=== PATIENT | female | born 1955 | race Caucasian/White ===

== ENCOUNTER 2017-02-14 08:48 | Emergency (ER) | payer OTHER ==
[2017-02-14 09:06] VITALS: TEMP 98.2
--- NOTE | 2017-02-14 10:13 | PDOC ---
History of Present Illness - General Chief Complaint: Psychiatric Stated Complaint: PRESSURE PROBLEM Time Seen by Provider: 02/14/17 09:34 History Source: Patient Exam Limitations: No Limitations - History of Present Illness Initial Comments: 02/14/17 10:08 61-year-old female with history of anxiety and bipolar presents to the ED for blood pressure check and while she was triage she states she feels overwhelmed and attributes her medical problems to her stress. Patient states that take her antipsychotic medications daily including her Lopressor. Patient denies homicidal or suicidal ideation but states feels she can't talk to anyone especially her who is very cold and distant. Patient also states is unemployed and is frequently bored. Patient states sees a psychiatrist regularly but feels he is only limited with his time and feel she needs more to speak to. Timing/Duration: intermittent Severity: mild Associated Symptoms: reports: denies symptoms Past History - Past Medical History Allergies/Adverse Reactions: Allergies Allergy/AdvReac Type Severity Reaction Status Date / Time Sulfa (Sulfonamide Allergy Verified 02/14/17 08:53 Antibiotics) [Sulfa(Sulfonamide Antibiotics)] Home Medications: Ambulatory Orders Alprazolam [Xanax] 1 mg PO BID PRN 09/12/14 Amlodipine Besylate [Norvasc -] 5 mg PO DAILY 09/12/14 Cholecalciferol (Vitamin D3) [Vitamin D3] 1,000 unit PO DAILY 09/12/14 Fluoxetine HCl [Prozac] 60 mg PO DAILY 09/12/14 Folic Acid/Mv,Fe,Min [Centrum Chewable Tablet] 1 each PO DAILY 09/12/14 Levothyroxine [Synthroid -] 12.5 mcg PO DAILY 09/12/14 Losartan Potassium 50 mg PO DAILY 09/12/14 Metoprolol Succinate [Toprol XL -] 50 mg PO BID 09/12/14 Mirtazapine [Remeron -] 15 mg PO HS PRN 09/12/14 Oxycodone HCl/Acetaminophen [Percocet 5-325 mg Tablet] 1 tab PO Q4H PRN Azithromycin [Zithromax 250mg Tablets -] 500 mg PO DAILY #7 tablet 09/18/14 Cefuroxime Axetil [Ceftin -] 500 mg PO BID #14 tablet 09/18/14 Oxycodone HCl/Acetaminophen [Percocet 5-325 mg Tablet] 1 tab PO Q4H #20 tablet MDD 4 09/01/16 Anemia: No Asthma: No Cancer: No Cardiac Disorders: No CVA: No COPD: No CHF: No Dementia: No Diabetes: No GI Disorders: No Disorders: Yes (UTI) HTN: Yes Hypercholesterolemia: Yes Liver Disease: Yes (HEP C) Suicide Attempt (Hx): No Seizures: No Thyroid Disease: Yes (HYPOTHYROID) - Surgical History Abdominal Surgery: No Appendectomy: No Cardiac Surgery: No Cholecystectomy: No Lung Surgery: No Neurologic Surgery: No Orthopedic Surgery: No - Immunization History Immunization Up to Date: Yes - Psycho/Social/Smoking Cessation Hx Anxiety: Yes Suicidal Ideation: No Smoking Status: Yes Smoking History: Current every day smoker Have you smoked in the past 12 months: Yes Number of Cigarettes Smoked Daily: 10 If you are a former smoker, when did you quit?: JUN 2014 Information on smoking cessation initiated: No 'Breaking Loose' booklet given: 07/03/12 Hx Alcohol Use: No Drug/Substance Use Hx: No Substance Use Type: None Hx Substance Use Treatment: No Patient Lives Alone: No Lives with/in: spouse/SO Review of Systems - Review of Systems Able to Perform ROS?: Yes Constitutional: No: Symptoms Reported HEENTM: No: Symptoms Reported Respiratory: No: Symptoms reported Cardiac (ROS): No: Symptoms Reported ABD/GI: No: Symptoms Reported : No: Symptoms Reported Musculoskeletal: No: Symptoms Reported Integumentary: No: Symptoms Reported Neurological: No: Symptoms reported Psychiatric: Yes: Anxiety, Frequent Crying, Stressors, Mood Swings Endocrine: No: Symptoms Reported Hematologic/Lymphatic: No: Symptoms Reported *Physical Exam - Vital Signs Last Vital Signs Temp Pulse Resp BP Pulse Ox 98.2 F 76 20 145/94 99 02/14/17 08:53 02/14/17 08:53 02/14/17 08:53 02/14/17 08:53 02/14/17 08:53 - Physical Exam General Appearance: Yes: Nourished, Appropriately Dressed. No: Apparent Distress HEENT: negative: Pale Conjunctivae Neck: positive: Supple Respiratory/Chest: positive: Lungs Clear, Normal Breath Sounds. negative: Respiratory Distress, Accessory Muscle Use Cardiovascular: positive: Regular Rhythm, Regular Rate. negative: Murmur Gastrointestinal/Abdominal: positive: Soft. negative: Tenderness Extremity: positive: Normal Capillary Refill. negative: Pedal Edema Integumentary: positive: Normal Color, Warm, Moist Neurologic: positive: Normal Mood/Affect (anxious and tearful), Motor Strength 5 /5 (ambulatory) Medical Decision Making - Medical Decision Making 02/14/17 10:21 Patient initially had just for blood pressure check since she thought her blood pressure is high and when she was here she was found to be tearful and anxious. On my exam patient contracted for safety and appears in no acute danger. Patient recommended to find outlets such as local social clubs, volunteering, or support groups. *DC/Admit/Observation/Transfer Diagnosis at time of Disposition: Blood pressure check Anxiety disorder Qualifiers: Anxiety disorder type: other mixed anxiety disorder Qualified Code(s): F41.3 - Other mixed anxiety disorders - Discharge Dispostion Disposition: HOME Condition at time of disposition: Good - Referrals Referrals: Damien Mckeon MD [Primary Care Provider] - - Patient Instructions Printed Discharge Instructions: Yoga May Help Reduce Anxiety and Stress Additional Instructions: Try to utilize dysuria local community in regards to attending events in the area, volunteering at local businesses or joining a support group. continue taking your medication as prescribed
[2017-02-14 10:24] VITALS: BP 153/94; PULSE 66
== END 2017-02-14 10:28 | disposition home or self-care (01) ==
LOC: JER 08:48
DX: Z01.30 Encounter for examination of blood pressure without abnormal findings (principal); F41.3 Other mixed anxiety disorders; I10 Essential (primary) hypertension; E78.00 Pure hypercholesterolemia, unspecified; E03.9 Hypothyroidism, unspecified; F17.210 Nicotine dependence, cigarettes, uncomplicated; Z88.1 Allergy status to other antibiotic agents; Z88.2 Allergy status to sulfonamides
CPT/HCPCS: 99281-25

== ENCOUNTER 2017-04-22 14:48 | Emergency (ER) | payer OTHER ==
[2017-04-22 14:55] VITALS: BP 146/97; PULSE 85; TEMP 98.6; BMI 20.1
--- NOTE | 2017-04-22 15:49 | PDOC ---
History of Present Illness - General Chief Complaint: Pain Stated Complaint: LT KNEE/LEG PAIN Time Seen by Provider: 04/22/17 15:23 History Source: Patient Exam Limitations: No Limitations - History of Present Illness Initial Comments: 04/22/17 15:46 Patient is here with complaints of left knee pain times one week. Patient has multiple complaints of states has chronic issues including hepatitis C and questionable multiple sclerosis. Patient denies any treatment currently but is being evaluated for treatment for hepatitis C by medical editor. Occurred: reports: last week Severity: reports: mild, moderate Pain Location: reports: lower extremity (patient is here with complaints of left leg fullness and pain in posterior fossa. States has had worsened tenderness over the past week. Without any at,, denies exercise changes, no heavy lifting or strenuous activity recently. Has never hurt this leg. Denies numbness or tingling to foot but feels some swelling. No shortness of breath or cough, no recent travel or prolonged periods of sitting.) Method of Injury: Yes: unknown Modifying Factors: improves with: None Loss of Consciousness: no loss of consciousness Associated Symptoms (Fall): denies symptoms Past History - Travel Traveled outside of the country in the last 30 days: No Close contact w/someone who was outside of country & ill: No - Past Medical History Allergies/Adverse Reactions: Allergies Allergy/AdvReac Type Severity Reaction Status Date / Time Sulfa (Sulfonamide Allergy Verified 04/22/17 14:54 Antibiotics) [Sulfa(Sulfonamide Antibiotics)] Home Medications: Ambulatory Orders Amlodipine Besylate [Norvasc -] 5 mg PO DAILY 09/12/14 Cholecalciferol (Vitamin D3) [Vitamin D3] 1,000 unit PO DAILY 09/12/14 Fluoxetine HCl [Prozac] 60 mg PO DAILY 09/12/14 Folic Acid/Mv,Fe,Min [Centrum Chewable Tablet] 1 each PO DAILY 09/12/14 Levothyroxine [Synthroid -] 100 mcg PO DAILY 09/12/14 Metoprolol Succinate [Toprol XL -] 50 mg PO DAILY 09/12/14 Diazepam [Valium] 10 mg PO BID PRN 02/14/17 Furosemide [Lasix] 40 mg PO ASDIR 02/14/17 Hydroxyzine HCl [Atarax -] 10 mg PO DAILY PRN 02/14/17 Ubidecarenone [Co Q-10] 10 mg PO DAILY 02/14/17 Anemia: No Asthma: No Cancer: No Cardiac Disorders: No CVA: No COPD: No (PNEUMONIA) CHF: No Dementia: No Diabetes: No GI Disorders: No Disorders: Yes (UTI) HTN: Yes Hypercholesterolemia: Yes Liver Disease: Yes (HEP C) Suicide Attempt (Hx): No Seizures: No Thyroid Disease: Yes (HYPOTHYROID) - Surgical History Abdominal Surgery: No Appendectomy: No Cardiac Surgery: No Cholecystectomy: No Lung Surgery: No Neurologic Surgery: No Orthopedic Surgery: No - Immunization History Immunization Up to Date: Yes - Psycho/Social/Smoking Cessation Hx Anxiety: Yes Suicidal Ideation: No Smoking Status: Yes Smoking History: Current every day smoker Have you smoked in the past 12 months: Yes Number of Cigarettes Smoked Daily: 20 If you are a former smoker, when did you quit?: JUN 2014 Information on smoking cessation initiated: Yes 'Breaking Loose' booklet given: 04/22/17 Hx Alcohol Use: No Drug/Substance Use Hx: No Substance Use Type: None Hx Substance Use Treatment: No Review of Systems - Review of Systems Able to Perform ROS?: Yes Is the patient limited [place] proficient: Yes Constitutional: Yes: See HPI. No: Symptoms Reported, Fever, Loss of Appetite, Malaise HEENTM: Yes: See HPI. No: Symptoms Reported Musculoskeletal: Yes: Symptoms Reported, See HPI, Joint Pain, Joint Swelling ( left knee and feels full to posterior fossa ) Integumentary: Yes: See HPI. No: Symptoms Reported Neurological: Yes: Symptoms reported All Other Systems: Reviewed and Negative *Physical Exam - Vital Signs Last Vital Signs Temp Pulse Resp BP Pulse Ox 98.6 F 85 20 146/97 94 L 04/22/17 14:51 04/22/17 14:51 04/22/17 14:51 04/22/17 14:51 04/22/17 14:51 - Physical Exam General Appearance: Yes: Nourished, Appropriately Dressed, Apparent Distress, Mild Distress HEENT: positive: FACUNDO, Normal ENT Inspection, TMs Normal, Pharynx Normal Respiratory/Chest: positive: Lungs Clear, Normal Breath Sounds Gastrointestinal/Abdominal: positive: Soft. negative: Tender Extremity: positive: Normal Capillary Refill, Swelling (mild swelling and palpable tenderness to the posterior fossa of left knee. No obvious thigh or calf swelling. Neurovascular intact to foot). negative: Normal Inspection, Normal Range of Motion, Calf Tenderness, Erythema Integumentary: positive: Dry, Warm, Pale Neurologic: positive: director of coding II-XII NML intact, Fully Oriented, Alert, Normal Mood/ Affect, Normal Response, Motor Strength 5/5 Progress Note - Progress Note Progress Note: Gonzalez cyst posterior fossa left knee, will follow-up with Dr. Cates *DC/Admit/Observation/Transfer Diagnosis at time of Disposition: Gonzalez's cyst of knee Qualifiers: Laterality: left Qualified Code(s): M71.22 - Synovial cyst of popliteal space [ Gonzalez], left knee - Discharge Dispostion Disposition: HOME Condition at time of disposition: Stable Admit: No - Referrals Referrals: Damien Mckeon MD [Primary Care Provider] - Jacob Kiser MD [Staff Physician] - - Patient Instructions Printed Discharge Instructions: DI for Gonzalez's Cyst Additional Instructions: Rest, ice to area on and off for 15 minutes 4-6 times a day Avoid heavy lifting or exercise until pain and swelling is resolved or until further directed Keep area highly elevated to reduce swelling Use splints/Timmy wrap as directed Followup with orthopedist in one to 2 days if not improving, if significantly improved may wait one week for followup with orthopedist May use ibuprofen 2-200 mg tablets every 6 hours as needed for pain - Post Discharge Activity Work/School Note: Back to Work
== END 2017-04-22 17:10 | disposition home or self-care (01) ==
LOC: JERFT 14:48
DX: M71.22 Synovial cyst of popliteal space [Baker], left knee (principal); F17.210 Nicotine dependence, cigarettes, uncomplicated; I10 Essential (primary) hypertension; E78.00 Pure hypercholesterolemia, unspecified; E03.9 Hypothyroidism, unspecified; B19.20 Unspecified viral hepatitis C without hepatic coma
CPT/HCPCS: 71020-TC; 93971-TC; 99281-25

== ENCOUNTER 2017-08-22 21:27 | Emergency (ER) | payer OTHER ==
[2017-08-22 21:42] VITALS: BP 145/94; PULSE 79; TEMP 97.7; BMI 18.6
[2017-08-22] MEDS ORDERED: valACYclovir HCL 1000 MG TABLET PO ONE (22:26)
--- NOTE | 2017-08-22 22:26 | PDOC ---
Attending Attestation - Resident Resident Name: Julio César Mar - ED Attending Attestation I have performed the following: I have examined & evaluated the patient, The case was reviewed & discussed with the resident - HPI HPI: 08/22/17 22:25 Pt comes with a painful rash on her left radial wrist. - Physicial Exam PE: 08/22/17 22:25 Pt has shingles - Medical Decision Making 08/22/17 22:25 Shingles; she will be given antivirals.
--- NOTE | 2017-08-22 22:35 | PDOC ---
History of Present Illness - General Chief Complaint: Redness To Affected Area Stated Complaint: CHECK FOR INFECTION Time Seen by Provider: 08/22/17 21:58 History Source: Patient - History of Present Illness Initial Comments: 08/22/17 22:51 patient is a 62 year old female with pmh of depression, hypertension and axiety presenting with left wrist redness and itchiness. She states that she broke her wrist 5 weeks ago and developped the rash for the past couple days., Past History - Past Medical History Allergies/Adverse Reactions: Allergies Allergy/AdvReac Type Severity Reaction Status Date / Time Sulfa (Sulfonamide Allergy Verified 07/11/17 15:15 Antibiotics) [Sulfa(Sulfonamide Antibiotics)] Home Medications: Ambulatory Orders Amlodipine Besylate [Norvasc -] 5 mg PO DAILY 09/12/14 Cholecalciferol (Vitamin D3) [Vitamin D3] 1,000 unit PO DAILY 09/12/14 Fluoxetine HCl [Prozac] 60 mg PO DAILY 09/12/14 Levothyroxine [Synthroid -] 75 mcg PO DAILY 09/12/14 Metoprolol Succinate [Toprol XL -] 50 mg PO DAILY 09/12/14 Diazepam [Valium] 10 mg PO BID PRN 02/14/17 Ubidecarenone [Co Q-10] 10 mg PO DAILY 02/14/17 Valacyclovir HCl [Valtrex -] 1,000 mg PO TID 7 Days #21 tablet 08/22/17 Anemia: No Asthma: No Cancer: No Cardiac Disorders: No CVA: No COPD: No (PNEUMONIA) CHF: No Dementia: No Diabetes: No GI Disorders: No Disorders: Yes (UTI) HTN: Yes Hypercholesterolemia: Yes Liver Disease: Yes (HEP C) Seizures: No Thyroid Disease: Yes (HYPOTHYROID) - Surgical History Abdominal Surgery: No Appendectomy: No Cardiac Surgery: No Cholecystectomy: No Lung Surgery: No Neurologic Surgery: No Orthopedic Surgery: No - Immunization History Immunization Up to Date: Yes - Suicide/Smoking/Psychosocial Hx Smoking Status: Yes Smoking History: Current every day smoker Have you smoked in the past 12 months: Yes Number of Cigarettes Smoked Daily: 10 If you are a former smoker, when did you quit?: JUN 2014 Information on smoking cessation initiated: No 'Breaking Loose' booklet given: 04/22/17 Hx Alcohol Use: No Drug/Substance Use Hx: No Substance Use Type: None Hx Substance Use Treatment: No Review of Systems - Review of Systems Able to Perform ROS?: Yes Constitutional: No: Symptoms Reported HEENTM: No: Symptoms Reported Respiratory: No: Symptoms reported Cardiac (ROS): No: Symptoms Reported ABD/GI: No: Symptoms Reported : No: Symptoms Reported Musculoskeletal: No: Symptoms Reported Integumentary: No: Symptoms Reported Neurological: No: Symptoms reported Endocrine: No: Symptoms Reported Hematologic/Lymphatic: No: Symptoms Reported All Other Systems: Reviewed and Negative *Physical Exam - Vital Signs Last Vital Signs Temp Pulse Resp BP Pulse Ox 97.7 F 79 18 145/94 99 08/22/17 21:29 08/22/17 21:29 08/22/17 21:29 08/22/17 21:29 08/22/17 21:29 - Physical Exam General Appearance: Yes: Nourished, Appropriately Dressed. No: Apparent Distress HEENT: positive: EOMI, FACUNDO, Normal ENT Inspection Neck: negative: Tender Respiratory/Chest: positive: Chest Tender, Lungs Clear, Normal Breath Sounds Cardiovascular: positive: Regular Rhythm, Regular Rate, S1, S2 Gastrointestinal/Abdominal: positive: Normal Bowel Sounds. negative: Tender Extremity: positive: Erythema (possibly vesicular rash over left wrist), Other Progress Note - Progress Note Progress Note: 62F presenting with vesicular rash over left wrist over one dermatome. Patient dischaged with course of valacyclovir *DC/Admit/Observation/Transfer Diagnosis at time of Disposition: Herpes zoster radiculitis - Discharge Dispostion Disposition: HOME Admit: No - Prescriptions Prescriptions: Valacyclovir HCl [Valtrex -] 1,000 mg PO TID 7 Days #21 tablet - Referrals Referrals: Damien Mckeon MD [Primary Care Provider] - - Patient Instructions Printed Discharge Instructions: Shingles (Herpes Zoster) (Alternative Therapy) , DI for Shingles Additional Instructions: Follow up with primarty physician within the next 2 days. Come back to the Ed for any new, worsening or concerning symptom. Keep area protected as you will be contagious for the duration of the lesions. - Post Discharge Activity
== END 2017-08-22 22:56 | disposition home or self-care (01) ==
LOC: JER 21:27
DX: B02.29 Other postherpetic nervous system involvement (principal); I10 Essential (primary) hypertension; E78.00 Pure hypercholesterolemia, unspecified; E03.9 Hypothyroidism, unspecified; B18.2 Chronic viral hepatitis C; F17.210 Nicotine dependence, cigarettes, uncomplicated
CPT/HCPCS: 99282-25

== ENCOUNTER 2017-08-30 20:51 | Emergency (ER) | payer OTHER ==
[2017-08-30 21:02] VITALS: BP 110/65; PULSE 73; TEMP 97.2; BMI 20.5
--- NOTE | 2017-08-30 22:27 | PDOC ---
History of Present Illness - General Chief Complaint: Pain, Acute Stated Complaint: SHOULDER PAIN History Source: Patient Exam Limitations: No Limitations - History of Present Illness Initial Comments: 08/30/17 22:10 Patient is a 62-year-old female with history of frequent falls recently, HTN, hypothyroid, depression/anxiety, hep C, recurrent syncope, COPD, fractures to ribs and, wrist, here with left upper extremity pain since yesterday. Patient states she was singing and dancing down her hallway at home when she ended up on the floor. She has had pain now 10/10 and worse with movement, and bruising to her left upper extremity since yesterday. She denies hitting her head, no loss of consciousness. Denies fever, chills, dysuria. PMD Dr. Mckeon PMHX: as above PSOCHX: (+) cig 1 PPD, neg etoh, neg drug ALL: Sulfa GENERAL/CONSTITUTIONAL: [No fever or chills. No weakness. No weight change.] HEAD, EYES, EARS, NOSE AND THROAT: [No change in vision. No ear pain or discharge. No sore throat.] CARDIOVASCULAR: [No chest pain or shortness of breath.] RESPIRATORY: [No cough, wheezing, or hemoptysis.] GASTROINTESTINAL: [No nausea, vomiting, diarrhea or constipation. No rectal bleeding.] GENITOURINARY: [No dysuria, frequency, or change in urination.] MUSCULOSKELETAL: (+) joint or muscle swelling or pain. No neck or back pain.] SKIN AND BREASTS: [No rash or easy bruising.] NEUROLOGIC: [No headache, vertigo, loss of consciousness, or loss of sensation.] PSYCHIATRIC: [No depression or anxiety.] ENDOCRINE: [No increased thirst. No abnormal weight change.] HEMATOLOGIC/LYMPHATIC: [No anemia, easy bleeding, or history of blood clots.] ALLERGIC/IMMUNOLOGIC: [No hives or skin allergy. No latex allergy.] GENERAL: [The patient is awake, alert, and fully oriented, in no acute distress. ] HEAD: [Normal with no signs of trauma.] EYES: [Pupils equal, round and reactive to light, extraocular movements intact, sclera anicteric, conjunctiva clear.] ENT: [Ears normal, nares patent, oropharynx clear without exudates. Moist mucous membranes.] NECK: [Normal range of motion, supple without lymphadenopathy, JVD, or masses.] LUNGS: [Breath sounds equal, clear to auscultation bilaterally. No wheezes, and no crackles.] HEART: [Regular rate and rhythm, normal S1 and S2 without murmur, rub.] ABDOMEN: [Soft, nontender, normoactive bowel sounds. No guarding, no rebound. No masses.] EXTREMITIES: (+) decreased range of motion, no edema to left upper ext, (+) bruising to the arm. No clubbing or cyanosis. No cords, erythema, or tenderness.] NEUROLOGICAL: [Cranial nerves II through XII grossly intact. Normal speech, normal gait.] PSYCH: [Normal mood, normal affect.] SKIN: [Warm, Dry, normal turgor, no rashes or lesions noted.] Past History - Past Medical History Allergies/Adverse Reactions: Allergies Allergy/AdvReac Type Severity Reaction Status Date / Time Sulfa (Sulfonamide Allergy Verified 08/30/17 21:02 Antibiotics) [Sulfa(Sulfonamide Antibiotics)] Home Medications: Ambulatory Orders Amlodipine Besylate [Norvasc -] 5 mg PO DAILY 09/12/14 Cholecalciferol (Vitamin D3) [Vitamin D3] 1,000 unit PO DAILY 09/12/14 Fluoxetine HCl [Prozac] 60 mg PO DAILY 09/12/14 Levothyroxine [Synthroid -] 75 mcg PO DAILY 09/12/14 Metoprolol Succinate [Toprol XL -] 50 mg PO DAILY 09/12/14 Diazepam [Valium] 10 mg PO BID PRN 02/14/17 Ubidecarenone [Co Q-10] 10 mg PO DAILY 02/14/17 Valacyclovir HCl [Valtrex -] 1,000 mg PO TID 7 Days #21 tablet 08/22/17 Anemia: No Asthma: No Cancer: No Cardiac Disorders: No CVA: No COPD: No (PNEUMONIA) CHF: No Dementia: No Diabetes: No GI Disorders: No Disorders: Yes (UTI) HTN: Yes Hypercholesterolemia: Yes Liver Disease: Yes (HEP C) Seizures: No Thyroid Disease: Yes (HYPOTHYROID) - Surgical History Abdominal Surgery: No Appendectomy: No 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[employer])) Cholecystectomy: No Lung Surgery: No Neurologic Surgery: No Orthopedic Surgery: No - Immunization History Immunization Up to Date: Yes - Suicide/Smoking/Psychosocial Hx Smoking Status: Yes Smoking History: Current every day smoker Have you smoked in the past 12 months: Yes Number of Cigarettes Smoked Daily: 10 If you are a former smoker, when did you quit?: JUN 2014 Information on smoking cessation initiated: No 'Breaking Loose' booklet given: 04/22/17 Hx Alcohol Use: No Drug/Substance Use Hx: No Substance Use Type: None Hx Substance Use Treatment: No *Physical Exam - Vital Signs Last Vital Signs Temp Pulse Resp BP Pulse Ox 97.2 F L 73 18 110/65 100 08/30/17 20:56 08/30/17 20:56 08/30/17 20:56 08/30/17 20:56 08/30/17 20:56 ED Treatment Course - RADIOLOGY Radiology Studies Ordered: Category Date Time Status CHEST PA & LAT [RAD] Stat Radiology 08/30/17 22:06 Ordered HUMERUS-LEFT [RAD] Stat Radiology 08/30/17 22:06 Ordered SHOULDER-LEFT [RAD] Stat Radiology 08/30/17 22:06 Ordered WRIST W/HAND-LEFT* [RAD] Stat Radiology 08/30/17 22:06 Ordered Medical Decision Making - Medical Decision Making 08/30/17 22:27 Patient is a 62-year-old female with history of frequent falls recently, HTN, hypothyroid, depression/anxiety, hep C, recurrent syncope, COPD, fractures to ribs and, wrist, here with left upper extremity pain since yesterday, will r/o fracture of shoulder, humerus. will get wrist xray due to prior injury. percocet ortho f/u in needed 08/30/17 23:03 XRAY humerus shows comminuted fx neck with dislacement. will put patient in a sling and follow up with Dr. Joseph. I discussed the physical exam findings, ancillary test results and final diagnoses with the patient. I answered all of the patient's questions. The patient was satisfied with the care received and felt comfortable with the discharge plan and treatment plan. The Patient agrees to follow up with the primary care physician within 24-72 hours. *DC/Admit/Observation/Transfer Diagnosis at time of Disposition: Humerus head fracture Qualifiers: Encounter type: initial encounter Fracture type: closed Laterality: left Qualified Code(s): S42.292A - Other displaced fracture of upper end of left humerus, initial encounter for closed fracture - Discharge Dispostion Disposition: HOME Condition at time of disposition: Stable - Referrals Referrals: Jason Joseph MD [Staff Physician] - - Patient Instructions Printed Discharge Instructions: DI for Humeral Fracture, How to Use a Sling Additional Instructions: Your Discharge Instructions: You must call primary care physician within 24 hours to arrange follow-up. Return to the Emergency Department with any new, persistent or worsening symptoms, for fever, chills, SOB, dizziness or any other concerning changes that may occur. He was follow-up with orthopedist in one to 2 days. Keep the arm in a sling. Ice to the area, and elevation in bed. - Post Discharge Activity
== END 2017-08-30 23:52 | disposition home or self-care (01) ==
LOC: JER 20:51
DX: S42.292A Other displaced fracture of upper end of left humerus, initial encounter for closed fracture (principal); W18.39XA Other fall on same level, initial encounter; Y93.49 Activity, other involving dancing and other rhythmic movements; Y92.038 Other place in apartment as the place of occurrence of the external cause; Y99.8 Other external cause status; Z91.81 History of falling; I10 Essential (primary) hypertension; E03.9 Hypothyroidism, unspecified; D41.8 Neoplasm of uncertain behavior of other specified urinary organs; B18.2 Chronic viral hepatitis C
CPT/HCPCS: 71020-TC; 73030-TC-LT; 73060-TC-LT; 73110-TC-LT; 73130-TC-LT; 99281-25

== ENCOUNTER 2017-12-26 08:10 | Emergency (ER) | payer OTHER ==
[2017-12-26 08:20] VITALS: BP 159/103; PULSE 90; TEMP 98.1; BMI 17.6
--- NOTE | 2017-12-26 09:06 | PDOC ---
History of Present Illness <Jorje Jones - Last Filed: 12/26/17 09:23> - History of Present Illness Initial Comments: 12/26/17 09:13 "The patient is a 62 year old female with a significant PMH of COPD, HTN, hyperlipidemia, hypothyroidism, hepatitis C, UTIs, depression who presents to the emergency department for evaluation of elevated blood pressure. The patient reports feeling as if her blood pressure was rising this morning and took a home reading which read 160/110. She reports taking an additional dose of 50 mg Metoprolol at 4:00AM, 5 mg Amlodipine, and 10 mg Valium prior to arrival. She notes her blood pressure is usually about 140/90 at baseline. She states her increased blood pressure may be due to stress as she reports significant social stressors in her life. The patient denies any other symptoms at presentation. The patient denies chest pain, shortness of breath, headache, and dizziness. Denies fevers, chills, nausea, vomit, diarrhea, and constipation. Denies dysuria, frequency, urgency, and hematuria. Allergies: Sulfonamide antibiotics Past surgical history: Cardiac surgery. Social history: Current everyday smoker. No reported alcohol or drug use. PCP: Dr. Mckeon " <Isaiah Charles - Last Filed: 12/27/17 07:51> - General Chief Complaint: Blood Pressure Problem Stated Complaint: ELEVATED BP Time Seen by Provider: 12/26/17 08:22 Past History <Jorje Jones - Last Filed: 12/26/17 09:23> - Past Medical History Anemia: No Asthma: No Cancer: No Cardiac Disorders: No CVA: No COPD: Yes (PNEUMONIA) CHF: No Dementia: No Diabetes: No GI Disorders: No Disorders: Yes (UTI) HTN: Yes Hypercholesterolemia: Yes Liver Disease: Yes (HEP C) Seizures: No Thyroid Disease: Yes (HYPOTHYROID) - Surgical History Abdominal Surgery: No Appendectomy: No 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gps,[facility])) Cholecystectomy: No Lung Surgery: No Neurologic Surgery: No Orthopedic Surgery: No - Immunization History Immunization Up to Date: Yes - Suicide/Smoking/Psychosocial Hx Smoking Status: Yes Smoking History: Current every day smoker Have you smoked in the past 12 months: Yes Number of Cigarettes Smoked Daily: 10 If you are a former smoker, when did you quit?: JUN 2014 Information on smoking cessation initiated: No 'Breaking Loose' booklet given: 04/22/17 Hx Alcohol Use: No Drug/Substance Use Hx: No Substance Use Type: None Hx Substance Use Treatment: No <Isaiah Charles - Last Filed: 12/27/17 07:51> - Past Medical History Allergies/Adverse Reactions: Allergies Allergy/AdvReac Type Severity Reaction Status Date / Time Sulfa (Sulfonamide Allergy Verified 12/26/17 08:16 Antibiotics) [Sulfa(Sulfonamide Antibiotics)] Home Medications: Ambulatory Orders Amlodipine Besylate [Norvasc -] 5 mg PO DAILY 09/12/14 Cholecalciferol (Vitamin D3) [Vitamin D3] 1,000 unit PO DAILY 09/12/14 Fluoxetine HCl [Prozac] 60 mg PO DAILY 09/12/14 Levothyroxine [Synthroid -] 75 mcg PO DAILY 09/12/14 Metoprolol Succinate [Toprol XL -] 50 mg PO DAILY 09/12/14 Diazepam [Valium] 10 mg PO BID PRN 02/14/17 Ubidecarenone [Co Q-10] 10 mg PO DAILY 02/14/17 Valacyclovir HCl [Valtrex -] 1,000 mg PO TID 7 Days #21 tablet 08/22/17 Oxycodone HCl/Acetaminophen [Percocet 5/325 -] 1 tab PO Q4H #14 tablet MDD 6 Review of Systems - Review of Systems Comments:: 12/26/17 09:13 "GENERAL/CONSTITUTIONAL: No fever or chills. No weakness. HEAD, EYES, EARS, NOSE AND THROAT: No change in vision. No ear pain or discharge. No sore throat. CARDIOVASCULAR: No chest pain or shortness of breath. RESPIRATORY: No cough, wheezing, or hemoptysis. GASTROINTESTINAL: No nausea, vomiting, diarrhea or constipation. GENITOURINARY: No dysuria, frequency, or change in urination. MUSCULOSKELETAL: No joint or muscle swelling or pain. No neck or back pain. SKIN: No rash NEUROLOGIC: No headache, vertigo, loss of consciousness, or change in strength/ sensation. ENDOCRINE: No increased thirst. No abnormal weight change. HEMATOLOGIC/LYMPHATIC: No anemia, easy bleeding, or history of blood clots. ALLERGIC/IMMUNOLOGIC: No hives or skin allergy. " <Isaiah Charles - Last Filed: 12/27/17 07:51> *Physical Exam - Vital Signs Last Vital Signs Temp Pulse Resp BP Pulse Ox 98.1 F 90 18 159/103 97 12/26/17 08:12 12/26/17 08:12 12/26/17 08:12 12/26/17 08:12 12/26/17 09:20 <Jorje Jones - Last Filed: 12/26/17 09:23> - Vital Signs Last Vital Signs Temp Pulse Resp BP Pulse Ox 98.1 F 90 18 159/103 97 12/26/17 08:12 12/26/17 08:12 12/26/17 08:12 12/26/17 08:12 12/26/17 08:12 - Physical Exam Comments: 12/26/17 09:13 "GENERAL: Awake, alert, and fully oriented, in no acute distress. HEAD: No signs of trauma EYES: PERRLA, EOMI, sclera anicteric, conjunctiva clear ENT: Auricles normal inspection, hearing grossly normal, nares patent, oropharynx clear without exudates. Moist mucosa NECK: Nontender, no stepoffs, Normal ROM, supple, no lymphadenopathy, JVD, or masses LUNGS: Breath sounds equal, clear to auscultation bilaterally. No wheezes, and no crackles HEART: Regular rate and rhythm, normal S1 and S2, no murmurs, rubs or gallops ABDOMEN: Soft, nontender, normoactive bowel sounds. No guarding, no rebound. No masses EXTREMITIES: Normal range of motion, no edema. No clubbing or cyanosis. No cords , erythema, or tenderness NEUROLOGICAL: Cranial nerves II through XII intact. 5/5 strength and sensation in all extremities, Normal speech, normal gait, normal cerebellar function SKIN: Warm, Dry, normal turgor, no rashes or lesions noted. " <Isaiah Charles - Last Filed: 12/27/17 07:51> ED Treatment Course - LABORATORY CBC & Chemistry Diagram: 12/26/17 09:15 <Jorje Jones - Last Filed: 12/26/17 09:23> - LABORATORY CBC & Chemistry Diagram: 12/26/17 09:15 12/26/17 09:15 - RADIOLOGY Radiology Studies Ordered: Category Date Time Status CHEST PA & LAT [RAD] Stat Radiology 12/26/17 08:54 Ordered <Isaiah Charles - Last Filed: 12/27/17 07:51> Medical Decision Making - Medical Decision Making 12/26/17 09:02 62 F with asymptomatic HTN. BP mildly elevated in ED. Pt without CP/SOB. Likely anxiety related as pt reports significant stress at home. Denying SI/HI/AVH in ED but is tearful and exhibiting signs of psychomotor agitation. - Labs, EKG - Recommend rapid f/u with psych 12/26/17 10:11 Labs wnl, CXR clear EKG nonischemic. Pt reassessed - continues to have no complaints. Pt counseled on f/u with her psychiatrist. Pt agrees and will see within 1 week. Pt is well appearing, with normal vitals. Clinically stable for DC at this time. I discussed the physical exam findings, ancillary test results and final diagnoses with the patient. I answered all of the patient's questions. The patient was satisfied with the care received and felt comfortable with the discharge plan and treatment plan. The patient agrees to follow up with the primary care physician within 24-72 hours. <Isaiah Charles - Last Filed: 12/27/17 07:51> *DC/Admit/Observation/Transfer - Attestations Scribe Attestion: 12/26/17 09:23 Documentation prepared by Jorje Jones, acting as medical cost consultant for Isaiah Charles MD. <Jorje Jones - Last Filed: 12/26/17 09:23> - Attestations Physician Attestion: 12/26/17 10:18 I, Dr. Isaiah Charles MD, attest that this document has been prepared under my direction and personally reviewed by me in its entirety. I further attest, that it accurately reflects all work, treatment, procedures and medical decision -making performed by me. <Isaiah Charles - Last Filed: 12/27/17 07:51> Diagnosis at time of Disposition: Hypertension - Discharge Dispostion Disposition: HOME - Referrals Referrals: Damien Mckeon MD [Primary Care Provider] - - Patient Instructions Printed Discharge Instructions: DI for High Blood Pressure Additional Instructions: Please follow up with your primary care doctor within 1 week to have your blood pressure re-checked. If it continues to be elevated, you may need to have your medications adjusted. If you experience chest pain, shortness of breath, or any other concerning symptoms, return to the ER immediately. - Post Discharge Activity
[2017-12-26 09:25] LABS: BASO % 0.5 % (0-2.0); EOS % 0.6 % (0-4.5); HEMATOCRIT 38.9 % (32.4-45.2); HEMOGLOBIN 12.9 GM/dL (10.7-15.3); LYMPH % 15.2 % (8-40); MCH 32.6 pg (25.7-33.7); MCHC 33.2 g/dl (32.0-36.0); MEAN CELL VOLUME 98.5 fl (80-96); MEAN PLT VOLUME 7.9 fl (7.5-11.1); MONO % 8.1 % (3.8-10.2); NEUT % 75.6 % (42.8-82.8); PLATELET COUNT 317 K/MM3 (134-434); RBC 3.95 M/mm3 (3.60-5.2); RDW 16.5 % (11.6-15.6); WHITE BLOOD COUNT 9.4 K/mm3 (4.0-10.0)
[2017-12-26 09:52] LABS: ALBUMIN 3.3 g/dl (3.4-5.0); ANION GAP 8 (8-16); BLOOD UREA NITROGEN 38 mg/dL (7-18); CALCIUM 8.7 mg/dL (8.5-10.1); CHLORIDE 105 mmol/L (98-107); CO2 25 mmol/L (21-32); CREATININE 1.6 mg/dL (0.55-1.02); GLUCOSE,RANDOM 87 mg/dL (74-106); SGOT/AST 36 U/L (15-37); SGPT/ALT 30 U/L (12-78); SODIUM 138 mmol/L (136-145)
[2017-12-26 09:56] LABS: ALK PHOS 141 U/L (45-117); BILIRUBIN,TOTAL 0.2 mg/dL (0.2-1.0); TOT PROT 7.3 g/dl (6.4-8.2)
== END 2017-12-26 11:06 | disposition home or self-care (01) ==
LOC: JER 08:10
DX: I10 Essential (primary) hypertension (principal); E78.00 Pure hypercholesterolemia, unspecified; J44.9 Chronic obstructive pulmonary disease, unspecified; B18.2 Chronic viral hepatitis C; E03.9 Hypothyroidism, unspecified; F32.9 Major depressive disorder, single episode, unspecified; Z87.440 Personal history of urinary (tract) infections
CPT/HCPCS: 36415; 71046-TC-FY; 80053; 82550; 83880; 84484; 85025; 99282-25

== ENCOUNTER 2018-02-11 07:50 | Day surgery (SDC) | payer OTHER ==
[2018-02-10 14:58] VITALS: BMI 16.9
[2018-02-11] MEDS ORDERED: PROPOFOL 20 ML ONE ×2 (08:49)
--- NOTE | 2018-02-11 09:46 | PROC ---
Endoscopy Procedure Endoscopy procedure completed. Please see scanned procedure report.
[2018-02-11 10:10] VITALS: PULSE 55
[2018-02-11 10:35] VITALS: BP 144/80; TEMP 97.9
--- NOTE | 2018-02-12 10:31 | PATH ---
Surgical Pathology Report Patient Name: UCHE LOZANO [facility]. Rec. #: [id number] /Age/Gender: 1955 (Age: 62) / F Account: [id number] Location: [facility]-ENDOSCOPY Taken: 02/11/2018 Received: 02/11/2018 Reported: 02/12/2018 Physicians: Hollis Elliott M.D. Specimen(s) Received A: BX 2ND PORTION DUODENUM B: BX DUODENAL BULB C: BX ANTRUM AND BODY D: POLYP SIGMOID 1 E: POLYP SIGMOID 2 F: POLYP SIGMOID 3 Clinical History Chronic viral hepatitis, weight loss Gastritis, duodenitis, colon polyps Final Diagnosis A. DUODENUM, SECOND PORTION, BIOPSY: DUODENAL MUCOSA WITH NO PATHOLOGIC CHANGES. NO HISTOLOGIC EVIDENCE OF GLUTEN SENSITIVE ENTEROPATHY (CELIAC SPRUE) IDENTIFIED. B. DUODENUM, BULB, BIOPSY: DUODENAL MUCOSA WITH NO PATHOLOGIC CHANGES. NO HISTOLOGIC EVIDENCE OF GLUTEN SENSITIVE ENTEROPATHY (CELIAC SPRUE) IDENTIFIED. C. STOMACH, ANTRUM AND BODY, BIOPSY: REACTIVE GASTROPATHY WITH FOCAL MILD CHRONIC GASTRITIS. DUODENAL MUCOSA WITH NO PATHOLOGIC CHANGE IS PRESENT. IMMUNOSTAIN FOR H. PYLORI IS NEGATIVE. D. COLON, SIGMOID POLYP 1, BIOPSY: HYPERPLASTIC POLYP. E. COLON, SIGMOID POLYP 2, BIOPSY: HYPERPLASTIC POLYP F. COLON, SIGMOID POLYP 3, BIOPSY: HYPERPLASTIC POLYP Electronically Signed Yimi Ruiz M.D. Gross Description A. Received in formalin, labeled "biopsy second portion duodenum" are 2 dale, irregular portions of soft tissue measuring 0.3 cm. in greatest dimension. The specimens are submitted in toto in one cassette. B. Received in formalin, labeled "biopsy duodenal bulb" are 2 dale, irregular portions of soft tissue measuring 0.2-0.3 cm. in greatest dimension. The specimens are submitted in toto in one cassette. C. Received in formalin, labeled "biopsy antrum and body" are 3 dale, irregular portions of soft tissue measuring 0 point one edge 0.3 cm. in greatest dimension. The specimens are submitted in toto in one cassette. D. Received in formalin, labeled "biopsy polyp sigmoid colon" are 3 dale, irregular portions of soft tissue measuring 0.2-0.4 cm. in greatest dimension. The specimens are submitted in toto in one cassette. E. Received in formalin, labeled "biopsy sigmoid polyp 2" are 2 dale, irregular portions of soft tissue measuring 0.1-0.3 cm. in greatest dimension. The specimens are submitted in toto in one cassette. F. Received in formalin, labeled "biopsy sigmoid polyp 3" is a dale, irregular portion of soft tissue measuring 0.3 cm. in greatest dimension. The specimen is submitted in toto in one cassette. [facility]02/11/2018 [facility]
== END 2018-02-11 10:40 | disposition home or self-care (01) ==
LOC: JASU-ENDO 07:50
PROVIDERS: ATTEND Internal Medicine Gastroenterology
PROC: 0DB68ZX Excision of Stomach, Via Natural or Artificial Opening Endoscopic, Diagnostic (ICD-10-PCS; 2018-02-11)
PROC: 0DBN8ZX Excision of Sigmoid Colon, Via Natural or Artificial Opening Endoscopic, Diagnostic (ICD-10-PCS; 2018-02-11)
PROC: 0DB98ZX Excision of Duodenum, Via Natural or Artificial Opening Endoscopic, Diagnostic (ICD-10-PCS; principal; 2018-02-11 09:00)
DX: K29.00 Acute gastritis without bleeding (principal); K29.80 Duodenitis without bleeding; K63.5 Polyp of colon
CPT/HCPCS: 88305-TC; 88342-TC

== ENCOUNTER 2018-08-05 07:29 | Day surgery (SDC) | payer OTHER ==
[2018-08-04 15:25] VITALS: BMI 18.8
[2018-08-05 07:54] LABS: BASO % 0.6 % (0-2.0); HEMATOCRIT 38.8 % (32.4-45.2); HEMOGLOBIN 12.5 GM/dL (10.7-15.3); MCH 32.2 pg (25.7-33.7); MCHC 32.2 g/dl (32.0-36.0); MEAN CELL VOLUME 100.1 fl (80-96); MEAN PLT VOLUME 8.1 fl (7.5-11.1); MONO % 11.4 % (3.8-10.2); PLATELET COUNT 286 K/MM3 (134-434); RBC 3.88 M/mm3 (3.60-5.2); RDW 14.1 % (11.6-15.6); WHITE BLOOD COUNT 7.8 K/mm3 (4.0-10.0)
[2018-08-05 08:00] LABS: INR 0.87 (0.83-1.09); PROTHROMBIN TIME (PATIENT) 10.2 SEC (9.7-13.0)
[2018-08-05 08:05] VITALS: TEMP 97.3
[2018-08-05] MEDS ORDERED: oxyCODONE HCL 5 MG TABLET ONE (12:56)
[2018-08-05 15:21] VITALS: BP 122/76; PULSE 54
--- NOTE | 2018-08-19 17:50 | PATH ---
Surgical Pathology Report Patient Name: UCHE LOZANO [facility]. Rec. #: [id number] /Age/Gender: 1955 (Age: 63) / F Account: [id number] Location: RADIOLOGY INTER Taken: 08/05/2018 Received: 08/05/2018 Reported: 08/19/2018 Physicians: Tim Li M.D. Specimen(s) Received RENAL BIOPSY Clinical History 63 year-old female with hypertension and proteinuria Intraoperative Consult Diagnosis Right renal biopsy: Glomeruli present. 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 TUBULAR ATROPHY AND INTERSTITIAL FIBROSIS, MILD. SEE COMMENT. Comment: The immunofluorescence findings of diffuse semilinear glomerular capillary wall staining for IgG, C3, and kappa lambda light chains, together with positive immunostaining for DNAJB9, support the diagnosis of fibrillary glomerulonephritis. No acute/active inflammatory injury is seen, but the interpretation is limited by the small sample size. Electron microscopy was performed and only a few capillaries are present following thin sectioning. Glomerular capillary lumina appear patent. Glomerular basement membranes show moderate thickening and intramembranous fibrils. No immune-type electron dense deposits or endothelial cell tubuloreticular inclusions are identified. Podocytes appear diffusely effaced. Interstitial collagen and a few interstitial mononuclear inflammatory cells are noted. Tubular basement membranes show moderate thickening. An arteriole shows medial hyperplasia. Case sent for consultation to Dr. Drew Reyes from [place], [place] ([id number]), the diagnosis above reflects his opinion. See complete report ([id number]) from [place], [place] for additional details. Electronically Signed Elena Arias M.D. Gross Description Received in saline labeled "right renal biopsy," are 2 dale-red, cylindrical portions of soft tissue measuring 0.2 and 1.1 cm in length and averaging 0.1 cm in diameter. The specimens are divided, placed into 10% formalin, Olivier fixative and glutaraldehyde. The specimen is sent to [facility] for further studies. /08/05/2018 [place]08/05/2018
== END 2018-08-05 15:40 | disposition home or self-care (01) ==
LOC: JRADIR 07:29
PROVIDERS: ATTEND Internal Medicine Nephrology
PROC: 0TB03ZX Excision of Right Kidney, Percutaneous Approach, Diagnostic (ICD-10-PCS; principal; 2018-08-05)
DX: N28.9 Disorder of kidney and ureter, unspecified (principal); R80.9 Proteinuria, unspecified
CPT/HCPCS: 36415; 50200; 76775-TC; 76942-TC; 85025; 85610; 88300-TC

== ENCOUNTER 2020-04-30 17:12 | Emergency (ER) | payer OTHER ==
[2020-04-30 17:17] VITALS: BP 122/78; PULSE 67; TEMP 98.9; BMI 20.2
--- NOTE | 2020-04-30 17:19 | PDOC ---
Rapid Medical Evaluation Time Seen by Provider: 04/30/20 17:17 Medical Evaluation: Allergies Allergy/AdvReac Type Severity Reaction Status Date / Time Sulfa (Sulfonamide Allergy Verified 04/30/20 17:14 Antibiotics) [Sulfa(Sulfonamide Antibiotics)] Vital Signs Temp Pulse Resp BP Pulse Ox 98.9 F 67 18 122/78 100 04/30/20 17:15 04/30/20 17:15 04/30/20 17:15 04/30/20 17:15 04/30/20 17:15 04/30/20 17:18 Pt presents for a collapsing on March 30 and states that her jaw is dislocated Exam: Talking in full sentences. Orders: Defer to provider Pt to proceed to the ER for further evaluation Discharge Disposition - Diagnosis Jaw pain - Referrals - Patient Instructions - Post Discharge Activity
--- NOTE | 2020-04-30 18:04 | PDOC ---
History of Present Illness - General Chief Complaint: Bone Injury Stated Complaint: COLLAPSED Time Seen by Provider: 04/30/20 17:17 History Source: Patient Exam Limitations: No Limitations - History of Present Illness Initial Comments: 04/30/20 18:01 65-year-old female with history of frequent falls, HTN, hypothyroid, depression/anxiety, hep C, recurrent syncope, COPD presenting to the ED complaining of jaw pain. Patient states that she syncopized and fell while on vacation in [place] a month ago. Patient was seen and evaluated at a medical facility at that time. Patient presents to the ED today complaining of jaw pain that has been persistent since the fall. Patient states she has pain which is exacerbated with eating. Patient also states that she lost her false teeth during the fall. Pt otherwise denies: fevers, chills, syncope, lightheadedness, dizziness, headaches, neck pain, chest pain, shortness of breath, palpitations, back pain, abdominal pain, nausea, vomiting, diarrhea, constipation. Past History - Medical History Allergies/Adverse Reactions: Allergies Allergy/AdvReac Type Severity Reaction Status Date / Time Sulfa (Sulfonamide Allergy Verified 04/30/20 17:14 Antibiotics) [Sulfa(Sulfonamide Antibiotics)] Home Medications: Ambulatory Orders Amlodipine Besylate [Norvasc -] 10 mg PO DAILY 09/12/14 Fluoxetine HCl [Prozac] 60 mg PO DAILY 09/12/14 Levothyroxine [Synthroid -] 75 mcg PO DAILY 09/12/14 Metoprolol Succinate [Toprol XL -] 50 mg PO DAILY 09/12/14 Losartan Potassium [Cozaar -] 25 mg PO AM 02/10/18 Losartan Potassium [Cozaar -] 50 mg PO HS 02/10/18 Acetaminophen/Diphenhydramine [Tylenol Pm Ex-Strength Caplet] 1 each PO PRN 08/04/18 Oxycodone HCl 5 mg PO PRN 08/04/18 Anemia: No Asthma: No Cancer: No Cardiac Disorders: Yes (monitor inserted in heart-MONITORING DISCONTINUED) CVA: No COPD: Yes (PNEUMONIA) CHF: No Dementia: No Diabetes: No GI Disorders: No Disorders: Yes (UTI) HTN: Yes Hypercholesterolemia: Yes Liver Disease: Yes (HEP C) Psychiatric Problems: (DEPRESSION) Seizures: No Thyroid Disease: Yes (HYPOTHYROID) - Surgical History Abdominal Surgery: No Appendectomy: No 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gps,[facility])2016) Cholecystectomy: No Lung Surgery: No Neurologic Surgery: No Orthopedic Surgery: No - Immunization History Immunization Up to Date: Yes - Psycho-Social/Smoking History Smoking Status: Yes Smoking History: Current every day smoker Have you smoked in the past 12 months: Yes Number of Cigarettes Smoked Daily: 10 If you are a former smoker, when did you quit?: JUN 2014 Information on smoking cessation initiated: No 'Breaking Loose' booklet given: 08/04/18 - Substance Abuse Hx (Audit-C & DAST Scrn) How often the patient has a drink containing alcohol: Never Score: In Men: 4 or > Positive; In Women: 3 or > Positive: 0 Screen Result (Pos requires Nsg. Audit-10AR): Negative In the last yr the pt used illegal drug/Rx for NonMed reason: No Score: Yes response is considered Positive: 0 Screen Result (Positive result requires Nsg. DAST-10): Negative *Physical Exam - Vital Signs Last Vital Signs Temp Pulse Resp BP Pulse Ox 98.9 F 67 18 122/78 100 04/30/20 17:15 04/30/20 17:15 04/30/20 17:15 04/30/20 17:15 04/30/20 17:15 - Physical Exam 04/30/20 18:02 Gen: AAOx 3, no acute distress, comfortable, no signs of respiratory distress HENT: atraumatic, normocephalic with no laceration or contusion. Nasal mucosa without erythema. Oropharynx without erythema or exudates. Mucous membranes moist. Facial: no swelling or asymmetry, ttp over b/l TMJs FROM equal bite no lacerations speaking in full sentences no drooling EYES: PERRL, EOM intact, conjunctiva pink NECK: supple; trachea midline; no JVD, no lymphadenopathy, or thyromegaly CV: RRR no murmurs, gallops, or rubs. CHEST: CTA b/l no wheezing, rales or rhonchi ABD: +BS/ND. no TTP; soft, no rebound, no guarding EXTREMITY: no cyanosis or erythema. 2+ dorsalis pedis, posterior tibial, and radial pulse. No pedal edema; no calf swelling or tenderness SKIN: no rash, warm and dry, no diaphoresis HEME: no purpura or ecchymosis NEURO: normal speech, CN II-XII intact, sensation intact, normal gait, no cerebellar deficits MS: 5/5 strength in all extremities, FROM intact in all extremities. 04/30/20 18:03 ED Treatment Course - RADIOLOGY Radiology Studies Ordered: Category Date Time Status MANDIBLE COMPLETE [RAD] Stat Radiology 04/30/20 18:01 Ordered Medical Decision Making - Medical Decision Making 04/30/20 18:03 [age]-year-old female with jaw pain Vital signs stable We will obtain mandible x-ray Will reassess based on results Mandible x-ray negative for any acute findings or dislocations Patient to follow-up with [facility] as well as PCP Pt appears well and is safe and stable for discharge with strict return precautions including signs and symptoms requring immediate return to the ED Supportive care instructions explained and given to pt. Reasons to return emergently to ER explained and given. Importance of follow up with PMD and other specialists as indicated stressed to pt. Pt verbalized understanding of instructions. Pt to follow up with PMD in 2 days. Discharge - Discharge Information Problems reviewed: Yes Clinical Impression/Diagnosis: Jaw pain Condition: Stable Disposition: HOME - Follow up/Referral Referrals: Damien Mckeon MD [Primary Care Provider] - - Patient Discharge Instructions Patient Printed Discharge Instructions: DI for Temporomandibular Disorder - Post Discharge Activity
== END 2020-04-30 18:57 | disposition home or self-care (01) ==
LOC: JERFT 17:12
DX: R68.84 Jaw pain (principal)
CPT/HCPCS: 70110-TC-FY; 99283-25

== ENCOUNTER 2022-07-21 19:07 | Emergency (ER) | payer OTHER ==
[2022-07-21 19:23] VITALS: BP 121/79; PULSE 78; RESP 16; TEMP 97.9; BMI 22.6
[2022-07-21] MEDS ORDERED: ACETAMINOPHEN 500 MG TABLET (FP) PO ONE (20:54)
[2022-07-21] MEDS ORDERED: ACETAMINOPHEN 500 MG TABLET (FP) ONE ×2 (20:57→20:58)
== END 2022-07-21 21:03 | disposition home or self-care (01) ==
LOC: JERFT 19:07
DX: S90.31XA Contusion of right foot, initial encounter (principal)
CPT/HCPCS: 73610-TC-RT-FY; 73630-TC-RT-FY; 99283-25

== ENCOUNTER 2022-12-19 20:42 | Inpatient (IN) | payer OTHER ==
[2022-12-19 22:04] LABS: BASO % 0.4 % (0-2.0); EOS % 2.4 % (0-4.5); HEMATOCRIT 28.4 % (32.4-45.2); HEMOGLOBIN 9.5 GM/dL (10.7-15.3); LYMPH % 30.1 % (8-40); MCH 31.3 pg (25.7-33.7); MCHC 33.6 g/dl (32.0-36.0); MEAN CELL VOLUME 93.2 fl (80-96); MONO % 16.7 % (3.8-10.2); NEUT % 50.4 % (42.8-82.8); PLATELET COUNT 185 10^3/uL (134-434); RBC 3.05 M/mm3 (3.60-5.2); RDW 13.5 % (11.6-15.6); WHITE BLOOD COUNT 3.7 K/mm3 (4.0-10.0)
[2022-12-19 22:16] LABS: CHLORIDE 106 mmol/L (98-107); SODIUM 139 mmol/L (136-145)
[2022-12-19 22:18] LABS: CALCIUM 7.9 mg/dL (8.5-10.1)
[2022-12-19 22:19] LABS: ALBUMIN 2.8 g/dl (3.4-5.0); ANION GAP 5 MMOL/L (8-16); BLOOD UREA NITROGEN 48.9 mg/dL (7-18); CO2 28 mmol/L (21-32); GLUCOSE,RANDOM 94 mg/dL (74-106); MAGNESIUM 1.9 mg/dL (1.8-2.4)
[2022-12-19 22:22] LABS: CREATININE 2.8 mg/dL (0.55-1.3); SGOT/AST 43 U/L (15-37); SGPT/ALT 37 U/L (13-61)
[2022-12-19 22:24] LABS: BILIRUBIN,TOTAL 0.3 mg/dL (0.2-1); TOT PROT 6.5 g/dl (6.4-8.2)
[2022-12-19 22:25] LABS: ALK PHOS 129 U/L (45-117)
[2022-12-19] MEDS ORDERED: SODIUM CHLORIDE 0.9% 500 ML INFUS.BAG IV ONE (22:34)
[2022-12-19] MEDS: ALBUTEROL SO4 2.5/IPRATROPIUM 0.5 INH SOL 3 ML VIAL.NEB. NEB SCH ×2 (23:30→23:45)
[2022-12-19 23:41] LABS: EPI CELLS 6 /uL (0-25.1); HYALINE CASTS 0 /uL (0-3.1); URINE APPEARANCE CLEAR; URINE BACTERIA 4 /uL (0-1359); URINE BILIRUBIN NEGATIVE (NEGATIVE); URINE COLOR YELLOW; URINE GLUCOSE (UA) NEGATIVE (NEGATIVE); URINE KETONE NEGATIVE (NEGATIVE); URINE LEUK ESTERASE NEGATIVE (NEGATIVE); URINE NITRITE NEGATIVE (NEGATIVE); URINE PROTEIN 1+ (NEGATIVE); URINE RBC 185 /uL (0-23.9); URINE UROBILINOGEN 0.2 mg/dL (0.2-1.0); URINE WBC 15 /uL (0-25.8)
[2022-12-19] MEDS ORDERED: ALBUTEROL SO4 2.5/IPRATROPIUM 0.5 INH SOL 3 ML VIAL.NEB. NEB ONE (23:55)
[2022-12-20] MEDS: ALBUTEROL SO4 2.5/IPRATROPIUM 0.5 INH SOL 3 ML VIAL.NEB. NEB SCH ×5 (00:18→20:17)
[2022-12-20] MEDS ORDERED: amLODIPine BESYLATE 10 MG TABLET (FP) PO SCH ×3 (04:38→22:00)
[2022-12-20] MEDS ORDERED: LACTATED RINGERS SOLUTION 1,000 ML/1,000 ML INFUS.BAG IV SCH ×2 (06:00→11:27)
[2022-12-20] MEDS: LEVOTHYROXINE NA 100 MCG TABLET (FP) PO SCH (06:02)
[2022-12-20] MEDS: HEPARIN NA (PORCINE) 5,000 UNITS/ML 1ML VIAL SQ SCH ×3 (06:02→22:18)
[2022-12-20] MEDS: methylPREDNISolone NA SUCC 40 MG/1 ML VIAL IVPUSH SCH ×2 (07:00→09:49)
[2022-12-20 08:08] LABS: BASO % 0.3 % (0-2.0); EOS % 2.2 % (0-4.5); HEMATOCRIT 29.1 % (32.4-45.2); HEMOGLOBIN 9.7 GM/dL (10.7-15.3); LYMPH % 28.8 % (8-40); MCH 31.3 pg (25.7-33.7); MCHC 33.5 g/dl (32.0-36.0); MEAN CELL VOLUME 93.5 fl (80-96); MEAN PLT VOLUME 8.8 fl (7.5-11.1); MONO % 13.9 % (3.8-10.2); NEUT % 54.8 % (42.8-82.8); PLATELET COUNT 172 10^3/uL (134-434); RBC 3.11 M/mm3 (3.60-5.2); RDW 13.5 % (11.6-15.6)
[2022-12-20 08:12] LABS: INR 1.02 (0.83-1.09); PROTHROMBIN TIME (PATIENT) 11.8 SEC (9.7-13.0)
[2022-12-20 08:15] LABS: ACTIVATED PTT 29.1 SECONDS (25.2-36.5)
[2022-12-20 08:30] LABS: CALCIUM 8.2 mg/dL (8.5-10.1)
[2022-12-20 08:31] LABS: ALBUMIN 2.7 g/dl (3.4-5.0); BLOOD UREA NITROGEN 40.6 mg/dL (7-18); MAGNESIUM 1.7 mg/dL (1.8-2.4)
[2022-12-20 08:34] LABS: CREATININE 2.3 mg/dL (0.55-1.3); PHOSPHOROUS 3.9 mg/dL (2.5-4.9)
[2022-12-20 08:35] LABS: BILIRUBIN,TOTAL 0.3 mg/dL (0.2-1); TOT PROT 6.5 g/dl (6.4-8.2)
[2022-12-20 09:34] LABS: RETICULOCYTES 1.08 % (0.5-1.5)
[2022-12-20 09:43] LABS: ANISOCYTOSIS 0; HELMET CELLS 0; HOWELL-JOLLY BODIES 0; MACROCYTOSIS 0; OVALOCYTE 0; ROULEAU 0; SICKELED CELLS 0; TARGET CELLS 0; TEAR DROP CELLS 0; TOXIC GRANULATION 0
[2022-12-20] MEDS: SODIUM BICARBONATE 650 MG TABLET PO SCH ×2 (09:49→22:18)
[2022-12-20] MEDS: FLUoxetine HCL 20 MG CAPSULE PO SCH (09:50)
[2022-12-20] MEDS ORDERED: OSELTAMIVIR PHOSPHATE 30 MG CAPSULE PO SCH (10:00)
[2022-12-20] MEDS ORDERED: ENOXAPARIN NA (PORCINE) 40 MG/0.4 ML DISP.SYRIN SQ SCH (10:00)
[2022-12-20] MEDS: clonazePAM 0.5 MG TABLET PO PRN (11:19)
[2022-12-20] MEDS: CEFUROXIME AXETIL 500 MG TABLET PO SCH ×2 (13:32→22:18)
[2022-12-20] MEDS: LACTATED RINGERS SOLUTION 1,000 ML/1,000 ML INFUS.BAG IV SCH (18:32)
[2022-12-20] MEDS: MELATONIN 5 MG TABLETS PO PRN (22:17)
[2022-12-21] MEDS: HEPARIN NA (PORCINE) 5,000 UNITS/ML 1ML VIAL SQ SCH ×3 (06:11→22:15)
[2022-12-21] MEDS: LEVOTHYROXINE NA 100 MCG TABLET (FP) PO SCH (06:11)
[2022-12-21] MEDS: LACTATED RINGERS SOLUTION 1,000 ML/1,000 ML INFUS.BAG IV SCH ×2 (06:11→16:34)
[2022-12-21] MEDS: ALBUTEROL SO4 2.5/IPRATROPIUM 0.5 INH SOL 3 ML VIAL.NEB. NEB SCH ×4 (07:50→20:21)
[2022-12-21] MEDS: FLUoxetine HCL 20 MG CAPSULE PO SCH (09:10)
[2022-12-21] MEDS: CEFUROXIME AXETIL 500 MG TABLET PO SCH ×2 (09:11→22:15)
[2022-12-21] MEDS: SODIUM BICARBONATE 650 MG TABLET PO SCH ×2 (09:11→22:15)
[2022-12-21] MEDS: predniSONE 20 MG TABLET (UD) PO SCH (09:11)
[2022-12-21] MEDS: clonazePAM 0.5 MG TABLET PO PRN (09:11)
[2022-12-21 09:48] LABS: CALCIUM 8.2 mg/dL (8.5-10.1)
[2022-12-21 09:49] LABS: MAGNESIUM 1.5 mg/dL (1.8-2.4)
[2022-12-21 09:51] LABS: CREATININE 1.5 mg/dL (0.55-1.3)
[2022-12-21 09:52] LABS: PHOSPHOROUS 2.5 mg/dL (2.5-4.9)
[2022-12-21] MEDS: hydrOXYzine PAMOATE 25 MG CAPSULE (FP) PO PRN (17:33)
[2022-12-21] MEDS: amLODIPine BESYLATE 5 MG TABLET (FP) PO SCH (22:15)
[2022-12-21] MEDS: MELATONIN 5 MG TABLETS PO PRN (22:17)
[2022-12-22] MEDS ORDERED: clonazePAM 0.5 MG TABLET PO ONE (01:38)
[2022-12-22] MEDS ORDERED: BENZOCAINE/MENTH/CETYLPYRD CL 1 EACH LOZENGE MM PRN (01:39)
[2022-12-22] MEDS ORDERED: amLODIPine BESYLATE 5 MG TABLET (FP) PO ONE (01:39)
[2022-12-22] MEDS: LEVOTHYROXINE NA 100 MCG TABLET (FP) PO SCH (06:25)
[2022-12-22] MEDS: HEPARIN NA (PORCINE) 5,000 UNITS/ML 1ML VIAL SQ SCH ×3 (06:25→22:15)
[2022-12-22] MEDS: ALBUTEROL SO4 2.5/IPRATROPIUM 0.5 INH SOL 3 ML VIAL.NEB. NEB SCH ×4 (08:57→20:40)
[2022-12-22] MEDS ORDERED: OSELTAMIVIR PHOSPHATE 30 MG CAPSULE PO SCH (10:00)
[2022-12-22] MEDS: predniSONE 20 MG TABLET (UD) PO SCH (10:09)
[2022-12-22] MEDS: FLUoxetine HCL 20 MG CAPSULE PO SCH (10:09)
[2022-12-22] MEDS: CEFUROXIME AXETIL 500 MG TABLET PO SCH (10:10)
[2022-12-22] MEDS: SODIUM BICARBONATE 650 MG TABLET PO SCH ×2 (10:10→22:15)
[2022-12-22] MEDS ORDERED: ALBUTEROL SO4 0.083% IH SOL 2.5 MG/3 ML VIAL.NEB. NEB PRN (10:15)
[2022-12-22 10:41] LABS: HEMATOCRIT 26.3 % (32.4-45.2); HEMOGLOBIN 8.7 GM/dL (10.7-15.3); MCH 31.2 pg (25.7-33.7); MCHC 33.1 g/dl (32.0-36.0); MEAN CELL VOLUME 94.2 fl (80-96); MEAN PLT VOLUME 7.8 fl (7.5-11.1); PLATELET COUNT 162 10^3/uL (134-434); RBC 2.79 M/mm3 (3.60-5.2); RDW 13.9 % (11.6-15.6); WHITE BLOOD COUNT 6.9 K/mm3 (4.0-10.0)
[2022-12-22 10:46] LABS: MAGNESIUM 1.5 mg/dL (1.8-2.4)
[2022-12-22 10:50] LABS: PHOSPHOROUS 2.5 mg/dL (2.5-4.9)
[2022-12-22 11:53] LABS: ANISOCYTOSIS 0; HELMET CELLS 0; HOWELL-JOLLY BODIES 0; MACROCYTOSIS 0; OVALOCYTE 0; ROULEAU 0; SICKELED CELLS 0; TARGET CELLS 0; TEAR DROP CELLS 0; TOXIC GRANULATION 0
[2022-12-22 17:01] VITALS: BMI 20.9
[2022-12-22] MEDS: methylPREDNISolone NA SUCC 40 MG/1 ML VIAL IVPUSH SCH (18:36)
[2022-12-22] MEDS: amLODIPine BESYLATE 5 MG TABLET (FP) PO SCH (22:15)
[2022-12-22] MEDS: CEFUROXIME AXETIL 250 MG TABLET PO SCH (22:15)
[2022-12-22] MEDS: clonazePAM 0.5 MG TABLET PO PRN (22:16)
[2022-12-22] MEDS: MELATONIN 5 MG TABLETS PO PRN (22:16)
[2022-12-23] MEDS: hydrOXYzine PAMOATE 25 MG CAPSULE (FP) PO PRN (03:45)
[2022-12-23] MEDS: methylPREDNISolone NA SUCC 40 MG/1 ML VIAL IVPUSH SCH ×3 (03:45→17:08)
[2022-12-23] MEDS: HEPARIN NA (PORCINE) 5,000 UNITS/ML 1ML VIAL SQ SCH ×3 (06:55→22:20)
[2022-12-23] MEDS: LEVOTHYROXINE NA 100 MCG TABLET (FP) PO SCH (06:56)
[2022-12-23] MEDS: ALBUTEROL SO4 2.5/IPRATROPIUM 0.5 INH SOL 3 ML VIAL.NEB. NEB SCH ×4 (07:55→20:05)
[2022-12-23 08:49] LABS: HEMATOCRIT 25.4 % (32.4-45.2); HEMOGLOBIN 8.7 GM/dL (10.7-15.3); MCH 31.6 pg (25.7-33.7); MCHC 34.1 g/dl (32.0-36.0); MEAN CELL VOLUME 92.8 fl (80-96); MEAN PLT VOLUME 8.7 fl (7.5-11.1); PLATELET COUNT 183 10^3/uL (134-434); RBC 2.74 M/mm3 (3.60-5.2); RDW 13.5 % (11.6-15.6)
[2022-12-23 09:06] LABS: BLOOD UREA NITROGEN 32.3 mg/dL (7-18); CALCIUM 8.4 mg/dL (8.5-10.1); MAGNESIUM 1.6 mg/dL (1.8-2.4)
[2022-12-23 09:07] LABS: ALBUMIN 2.7 g/dl (3.4-5.0)
[2022-12-23 09:09] LABS: CREATININE 1.6 mg/dL (0.55-1.3); PHOSPHOROUS 2.6 mg/dL (2.5-4.9)
[2022-12-23 09:11] LABS: BILIRUBIN,TOTAL 0.7 mg/dL (0.2-1); TOT PROT 6.2 g/dl (6.4-8.2)
[2022-12-23] MEDS: CEFUROXIME AXETIL 250 MG TABLET PO SCH ×2 (09:49→22:20)
[2022-12-23] MEDS: FLUoxetine HCL 20 MG CAPSULE PO SCH (09:49)
[2022-12-23] MEDS: SODIUM BICARBONATE 650 MG TABLET PO SCH ×2 (09:50→22:20)
[2022-12-23] MEDS ORDERED: MAGNESIUM 1GM/D5W 100ML - 100 ML IVPB IVPB ONE (10:30)
[2022-12-23] MEDS: clonazePAM 0.5 MG TABLET PO PRN ×2 (11:38→22:27)
[2022-12-23] MEDS: MAGNESIUM OXIDE 400 MG TABLET (FP) PO ONE ×2 (13:15→13:18)
[2022-12-23] MEDS: amLODIPine BESYLATE 5 MG TABLET (FP) PO SCH (22:20)
[2022-12-24] MEDS: methylPREDNISolone NA SUCC 40 MG/1 ML VIAL IVPUSH SCH ×2 (01:22→09:01)
[2022-12-24] MEDS: LEVOTHYROXINE NA 100 MCG TABLET (FP) PO SCH (06:40)
[2022-12-24] MEDS: HEPARIN NA (PORCINE) 5,000 UNITS/ML 1ML VIAL SQ SCH ×3 (06:40→22:05)
[2022-12-24 08:14] LABS: HEMATOCRIT 24.8 % (32.4-45.2); HEMOGLOBIN 8.6 GM/dL (10.7-15.3); MCH 32.1 pg (25.7-33.7); MCHC 34.4 g/dl (32.0-36.0); MEAN CELL VOLUME 93.2 fl (80-96); MEAN PLT VOLUME 8.5 fl (7.5-11.1); PLATELET COUNT 205 10^3/uL (134-434); RBC 2.67 M/mm3 (3.60-5.2); RDW 13.7 % (11.6-15.6); WHITE BLOOD COUNT 7.1 K/mm3 (4.0-10.0)
[2022-12-24 08:24] LABS: MAGNESIUM 1.9 mg/dL (1.8-2.4)
[2022-12-24 08:25] LABS: BLOOD UREA NITROGEN 39.2 mg/dL (7-18)
[2022-12-24 08:26] LABS: CALCIUM 8.5 mg/dL (8.5-10.1)
[2022-12-24 08:27] LABS: PHOSPHOROUS 2.9 mg/dL (2.5-4.9)
[2022-12-24 08:28] LABS: CREATININE 1.7 mg/dL (0.55-1.3)
[2022-12-24] MEDS: ALBUTEROL SO4 2.5/IPRATROPIUM 0.5 INH SOL 3 ML VIAL.NEB. NEB SCH ×4 (08:50→20:05)
[2022-12-24] MEDS: FLUoxetine HCL 20 MG CAPSULE PO SCH (09:00)
[2022-12-24] MEDS: SODIUM BICARBONATE 650 MG TABLET PO SCH ×2 (09:00→22:06)
[2022-12-24] MEDS: clonazePAM 0.5 MG TABLET PO PRN ×2 (09:01→22:06)
[2022-12-24] MEDS: hydrOXYzine PAMOATE 25 MG CAPSULE (FP) PO PRN (13:17)
[2022-12-24] MEDS ORDERED: amLODIPine BESYLATE 5 MG TABLET (FP) PO SCH (18:31)
[2022-12-24] MEDS ORDERED: methylPREDNISolone NA SUCC 40 MG/1 ML VIAL IVPUSH SCH (22:00)
[2022-12-24] MEDS: MELATONIN 5 MG TABLETS PO PRN (22:06)
[2022-12-25] MEDS: HEPARIN NA (PORCINE) 5,000 UNITS/ML 1ML VIAL SQ SCH (06:25)
[2022-12-25] MEDS: LEVOTHYROXINE NA 100 MCG TABLET (FP) PO SCH (06:25)
[2022-12-25 06:49] LABS: HEMATOCRIT 24.5 % (32.4-45.2); HEMOGLOBIN 8.3 GM/dL (10.7-15.3); MCH 31.7 pg (25.7-33.7); MEAN CELL VOLUME 93.2 fl (80-96); MEAN PLT VOLUME 8.3 fl (7.5-11.1); PLATELET COUNT 191 10^3/uL (134-434); RBC 2.63 M/mm3 (3.60-5.2); RDW 13.8 % (11.6-15.6); WHITE BLOOD COUNT 10.5 K/mm3 (4.0-10.0)
[2022-12-25 07:11] LABS: BLOOD UREA NITROGEN 45.4 mg/dL (7-18); CALCIUM 8.1 mg/dL (8.5-10.1); MAGNESIUM 1.9 mg/dL (1.8-2.4)
[2022-12-25 07:15] LABS: CREATININE 1.7 mg/dL (0.55-1.3); PHOSPHOROUS 2.9 mg/dL (2.5-4.9)
[2022-12-25] MEDS: ALBUTEROL SO4 2.5/IPRATROPIUM 0.5 INH SOL 3 ML VIAL.NEB. NEB SCH ×2 (08:03→11:45)
[2022-12-25] MEDS ORDERED: predniSONE 20 MG TABLET (UD) PO SCH ×2 (10:00)
[2022-12-25] MEDS ORDERED: TORSEMIDE 10 MG TABLET PO SCH (10:00)
[2022-12-25] MEDS ORDERED: LOSARTAN POTASSIUM 50 MG TABLET PO SCH ×2 (10:00)
[2022-12-25] MEDS: FLUoxetine HCL 20 MG CAPSULE PO SCH (10:14)
[2022-12-25] MEDS: SODIUM BICARBONATE 650 MG TABLET PO SCH (10:14)
[2022-12-25] MEDS: clonazePAM 0.5 MG TABLET PO PRN (10:23)
[2022-12-25 13:22] VITALS: BP 132/88; PULSE 70; RESP 24; TEMP 98.4
[2022-12-27] MEDS ORDERED: predniSONE 20 MG, predniSONE 10 MG PO SCH (10:00)
[2022-12-29] MEDS ORDERED: predniSONE 20 MG TABLET (UD) PO SCH (10:00)
[2022-12-31] MEDS ORDERED: predniSONE 10 MG TABLET (UD) PO SCH (10:00)
[2022-12-31] MEDS ORDERED: ERGOCALCIFEROL (VIT D2) 50,000 UNIT (1.25 MG) CAPSULE PO SCH (10:00)
== END 2022-12-25 14:04 | DRG 683 ==
LOC: JER 20:42 → JERBED 12-20 03:07 → J4W 12-20 05:13
PROVIDERS: ADMIT Internal Medicine; ATTEND Internal Medicine
DX: N17.9 Acute kidney failure, unspecified (principal); D61.818 Other pancytopenia; J44.1 Chronic obstructive pulmonary disease with (acute) exacerbation; N39.0 Urinary tract infection, site not specified; E03.9 Hypothyroidism, unspecified; E78.5 Hyperlipidemia, unspecified; R74.01 Elevation of levels of liver transaminase levels; J10.1 Influenza due to other identified influenza virus with other respiratory manifestations; I12.9 Hypertensive chronic kidney disease with stage 1 through stage 4 chronic kidney disease, or unspecified chronic kidney disease; N18.30 Chronic kidney disease, stage 3 unspecified; B18.2 Chronic viral hepatitis C; E83.42 Hypomagnesemia; F41.9 Anxiety disorder, unspecified; M81.0 Age-related osteoporosis without current pathological fracture; D63.1 Anemia in chronic kidney disease; R63.4 Abnormal weight loss; Z68.21 Body mass index [BMI] 21.0-21.9, adult; R94.31 Abnormal electrocardiogram [ECG] [EKG]; N20.0 Calculus of kidney
CPT/HCPCS: 0241U-QW; 36415; 70450-TC; 71250-TC; 72125-TC; 74176-TC; 76775-TC; 80048; 80053; 80307; 81003; 82570; 82607; 82728; 82746; 83540; 83550; 83605; 83735; 83935; 84100; 84156; 84439; 84443; 84484; 85025; 85027; 85045; 85610; 85730; 87086; 93005; 93010; 94010; 94640; 94761; 97116-GP; 97162-GP; 99285-25; J1644

== ENCOUNTER 2023-04-08 11:21 | Day surgery (SDC) | payer OTHER ==
[2023-04-08 13:57] VITALS: RESP 16; TEMP 96.8
[2023-04-08 14:04] VITALS: BP 168/92; PULSE 62
== END 2023-04-08 14:00 | disposition home or self-care (01) ==
LOC: FASU-ENDO 11:21
PROVIDERS: ATTEND Internal Medicine Gastroenterology
PROC: 0DB68ZX Excision of Stomach, Via Natural or Artificial Opening Endoscopic, Diagnostic (ICD-10-PCS; 2023-04-08)
PROC: 0DB48ZX Excision of Esophagogastric Junction, Via Natural or Artificial Opening Endoscopic, Diagnostic (ICD-10-PCS; 2023-04-08)
PROC: 0DB98ZX Excision of Duodenum, Via Natural or Artificial Opening Endoscopic, Diagnostic (ICD-10-PCS; principal; 2023-04-08 13:01)
DX: K29.50 Unspecified chronic gastritis without bleeding (principal); R10.13 Epigastric pain; K31.9 Disease of stomach and duodenum, unspecified
CPT/HCPCS: 88305-TC; 88312-TC; 88342-TC

== ENCOUNTER 2023-08-13 13:15 | Observation (INO) | payer OTHER ==
[2023-08-13] MEDS ORDERED: ONDANSETRON 4 MG/2 ML VIAL IVPUSH ONE (13:49)
[2023-08-13] MEDS ORDERED: ONDANSETRON 4 MG/2 ML VIAL ONE (14:39)
[2023-08-13 14:56] LABS: BASO % 0.5 % (0-2.0); EOS % 0.5 % (0-4.5); HEMATOCRIT 35.5 % (32.4-45.2); HEMOGLOBIN 11.8 GM/dL (10.7-15.3); LYMPH % 11.6 % (8-40); MCH 31.5 pg (25.7-33.7); MCHC 33.2 g/dl (32.0-36.0); MEAN CELL VOLUME 94.8 fl (80-96); MONO % 9.9 % (3.8-10.2); NEUT % 77.5 % (42.8-82.8); PLATELET COUNT 292 10^3/uL (134-434); RBC 3.75 M/mm3 (3.60-5.2); RDW 14.1 % (11.6-15.6); WHITE BLOOD COUNT 7.7 K/mm3 (4.0-10.0)
[2023-08-13 15:16] LABS: POTASSIUM 4.1 mmol/L (3.5-5.1)
[2023-08-13 15:18] LABS: ALBUMIN 3.4 g/dl (3.4-5.0); CALCIUM 9.2 mg/dL (8.5-10.1)
[2023-08-13 15:19] LABS: BLOOD UREA NITROGEN 49.1 mg/dL (7-18)
[2023-08-13 15:22] LABS: BILIRUBIN,TOTAL 0.2 mg/dL (0.2-1); TOT PROT 7.6 g/dl (6.4-8.2)
[2023-08-13 15:24] LABS: CREATININE 2.4 mg/dL (0.55-1.3)
[2023-08-13] MEDS: SODIUM CHLORIDE 1,000 ML IV SCH (16:41)
[2023-08-13 20:47] VITALS: BMI 19.3
[2023-08-13] MEDS: HEPARIN NA (PORCINE) 5,000 UNITS/ML 1ML VIAL SQ SCH (21:13)
[2023-08-13] MEDS: SODIUM BICARBONATE 650 MG TABLET PO SCH (21:13)
[2023-08-13] MEDS: amLODIPine BESYLATE 5 MG TABLET (FP) PO SCH (21:13)
[2023-08-14 03:43] LABS: EPI CELLS 7 /uL (0-25.1); HYALINE CASTS 0 /uL (0-3.1); URINE APPEARANCE CLEAR; URINE BACTERIA 120 /uL (0-1359); URINE BILIRUBIN NEGATIVE (NEGATIVE); URINE COLOR YELLOW; URINE GLUCOSE (UA) NEGATIVE (NEGATIVE); URINE KETONE NEGATIVE (NEGATIVE); URINE LEUK ESTERASE NEGATIVE (NEGATIVE); URINE NITRITE NEGATIVE (NEGATIVE); URINE PROTEIN 3+ (NEGATIVE); URINE UROBILINOGEN 0.2 mg/dL (0.2-1.0); URINE WBC 7 /uL (0-25.8)
[2023-08-14] MEDS: SODIUM CHLORIDE 1,000 ML IV SCH (04:11)
[2023-08-14] MEDS: HEPARIN NA (PORCINE) 5,000 UNITS/ML 1ML VIAL SQ SCH ×3 (05:11→21:29)
[2023-08-14] MEDS: LEVOTHYROXINE NA 100 MCG TABLET (FP) PO SCH (06:27)
[2023-08-14 06:32] LABS: URINE RBC 159.8 /uL (0-23.9)
[2023-08-14 06:33] LABS: YEAST NONE SEEN (NEGATIVE)
[2023-08-14 09:06] LABS: HEMATOCRIT 30.8 % (32.4-45.2); HEMOGLOBIN 10.2 GM/dL (10.7-15.3); MCH 31.4 pg (25.7-33.7); MCHC 33.2 g/dl (32.0-36.0); MEAN CELL VOLUME 94.6 fl (80-96); PLATELET COUNT 225 10^3/uL (134-434); RBC 3.25 M/mm3 (3.60-5.2); RDW 14.1 % (11.6-15.6); WHITE BLOOD COUNT 6.8 K/mm3 (4.0-10.0)
[2023-08-14 09:20] LABS: POTASSIUM 3.6 mmol/L (3.5-5.1)
[2023-08-14 09:24] LABS: CALCIUM 8.4 mg/dL (8.5-10.1)
[2023-08-14 09:25] LABS: ALBUMIN 2.9 g/dl (3.4-5.0)
[2023-08-14 09:27] LABS: BILIRUBIN,DIRECT 0.2 mg/dL (0.0-0.2)
[2023-08-14 09:30] LABS: BILIRUBIN,TOTAL 0.5 mg/dL (0.2-1); TOT PROT 6.4 g/dl (6.4-8.2)
[2023-08-14] MEDS: FLUoxetine HCL 20 MG CAPSULE PO SCH (09:44)
[2023-08-14] MEDS: SODIUM BICARBONATE 650 MG TABLET PO SCH ×2 (09:44→21:28)
[2023-08-14] MEDS: clonazePAM 0.5 MG TABLET PO PRN ×2 (09:55→18:57)
[2023-08-14] MEDS ORDERED: TORSEMIDE 10 MG TABLET PO SCH (10:00)
[2023-08-14] MEDS ORDERED: SODIUM CHLORIDE 0.45% 1,000 ML IV SCH (15:45)
[2023-08-14] MEDS: amLODIPine BESYLATE 5 MG TABLET (FP) PO SCH (21:28)
[2023-08-15] MEDS: HEPARIN NA (PORCINE) 5,000 UNITS/ML 1ML VIAL SQ SCH ×3 (06:35→22:14)
[2023-08-15] MEDS: LEVOTHYROXINE NA 100 MCG TABLET (FP) PO SCH (06:35)
[2023-08-15 08:28] LABS: BASO % 0.5 % (0-2.0); HEMOGLOBIN 9.7 GM/dL (10.7-15.3); LYMPH % 31.2 % (8-40); MCH 31.6 pg (25.7-33.7); MCHC 33.5 g/dl (32.0-36.0); MEAN CELL VOLUME 94.2 fl (80-96); MEAN PLT VOLUME 8.2 fl (7.5-11.1); MONO % 13.9 % (3.8-10.2); NEUT % 51.4 % (42.8-82.8); PLATELET COUNT 204 10^3/uL (134-434); RBC 3.08 M/mm3 (3.60-5.2); RDW 14.2 % (11.6-15.6); WHITE BLOOD COUNT 6.6 K/mm3 (4.0-10.0)
[2023-08-15 08:52] LABS: POTASSIUM 3.8 mmol/L (3.5-5.1)
[2023-08-15 09:02] LABS: ALBUMIN 2.6 g/dl (3.4-5.0); CALCIUM 7.9 mg/dL (8.5-10.1); MAGNESIUM 1.6 mg/dL (1.8-2.4)
[2023-08-15 09:04] LABS: BLOOD UREA NITROGEN 32.7 mg/dL (7-18)
[2023-08-15 09:05] LABS: CREATININE 1.9 mg/dL (0.55-1.3)
[2023-08-15 09:08] LABS: BILIRUBIN,TOTAL 0.4 mg/dL (0.2-1); TOT PROT 5.7 g/dl (6.4-8.2)
[2023-08-15] MEDS ORDERED: MAGNESIUM OXIDE 400 MG TABLET (FP) PO ONE (09:57)
[2023-08-15] MEDS ORDERED: TORSEMIDE 10 MG TABLET PO SCH (10:00)
[2023-08-15] MEDS: SODIUM BICARBONATE 650 MG TABLET PO SCH ×2 (10:05→22:14)
[2023-08-15] MEDS: FLUoxetine HCL 20 MG CAPSULE PO SCH (10:06)
[2023-08-15] MEDS: clonazePAM 0.5 MG TABLET PO PRN (17:33)
[2023-08-15] MEDS ORDERED: CEFUROXIME AXETIL 500 MG TABLET PO SCH (22:00)
[2023-08-15] MEDS: amLODIPine BESYLATE 5 MG TABLET (FP) PO SCH (22:14)
[2023-08-15] MEDS: CEFUROXIME AXETIL 250 MG TABLET PO SCH (22:14)
[2023-08-16] MEDS: HEPARIN NA (PORCINE) 5,000 UNITS/ML 1ML VIAL SQ SCH ×2 (06:35→14:14)
[2023-08-16] MEDS: LEVOTHYROXINE NA 100 MCG TABLET (FP) PO SCH (06:35)
[2023-08-16 08:15] LABS: BASO % 0.4 % (0-2.0); EOS % 3.3 % (0-4.5); HEMATOCRIT 28.4 % (32.4-45.2); HEMOGLOBIN 9.5 GM/dL (10.7-15.3); LYMPH % 26.5 % (8-40); MCH 31.4 pg (25.7-33.7); MCHC 33.6 g/dl (32.0-36.0); MEAN CELL VOLUME 93.5 fl (80-96); MONO % 15.8 % (3.8-10.2); PLATELET COUNT 208 10^3/uL (134-434); RBC 3.04 M/mm3 (3.60-5.2); RDW 13.9 % (11.6-15.6); WHITE BLOOD COUNT 6.3 K/mm3 (4.0-10.0)
[2023-08-16 09:01] LABS: ALBUMIN 2.6 g/dl (3.4-5.0); CALCIUM 8.4 mg/dL (8.5-10.1); MAGNESIUM 1.8 mg/dL (1.8-2.4)
[2023-08-16 09:06] LABS: CREATININE 1.6 mg/dL (0.55-1.3)
[2023-08-16 09:07] VITALS: RESP 18
[2023-08-16 09:07] LABS: BILIRUBIN,TOTAL 0.5 mg/dL (0.2-1); TOT PROT 5.6 g/dl (6.4-8.2)
[2023-08-16] MEDS: CEFUROXIME AXETIL 250 MG TABLET PO SCH (09:47)
[2023-08-16] MEDS: SODIUM BICARBONATE 650 MG TABLET PO SCH (09:47)
[2023-08-16] MEDS: FLUoxetine HCL 20 MG CAPSULE PO SCH (09:47)
[2023-08-16] MEDS: clonazePAM 0.5 MG TABLET PO PRN (14:14)
[2023-08-16 15:50] VITALS: BP 188/94; PULSE 76; TEMP 98.9
[2023-08-17] MEDS ORDERED: TORSEMIDE 10 MG TABLET PO SCH (10:00)
[2023-08-20] MEDS ORDERED: ERGOCALCIFEROL (VIT D2) 50,000 UNIT (1.25 MG) CAPSULE PO SCH (10:00)
== END 2023-08-16 19:46 | disposition home or self-care (01) ==
LOC: JER 13:15 → JERBED 19:24 → J7W 20:20
PROVIDERS: ADMIT Internal Medicine; ATTEND Nurse Practitioner Family
PROC: 3E023GC Introduction of Other Therapeutic Substance into Muscle, Percutaneous Approach (ICD-10-PCS; principal; 2023-08-13)
PROC: 3E033GC Introduction of Other Therapeutic Substance into Peripheral Vein, Percutaneous Approach (ICD-10-PCS; 2023-08-13)
DX: R10.12 Left upper quadrant pain (principal); N18.9 Chronic kidney disease, unspecified; R10.9 Unspecified abdominal pain; N39.0 Urinary tract infection, site not specified; I12.9 Hypertensive chronic kidney disease with stage 1 through stage 4 chronic kidney disease, or unspecified chronic kidney disease; B19.20 Unspecified viral hepatitis C without hepatic coma; M81.0 Age-related osteoporosis without current pathological fracture; E03.9 Hypothyroidism, unspecified; J44.9 Chronic obstructive pulmonary disease, unspecified; Z99.81 Dependence on supplemental oxygen; Z29.89 Encounter for other specified prophylactic measures; F41.9 Anxiety disorder, unspecified; Z88.2 Allergy status to sulfonamides
CPT/HCPCS: 0241U-QW; 36415; 71046-TC-FY; 74176-TC; 80048; 80053; 80076; 81003; 82570; 83690; 83735; 83935; 84300; 85025; 85027; 87086; 87186; 93005; 93010; 96361; 96372; 96374; 97116-GP; 97161-GP; 99285-25; G0378; J1644

== ENCOUNTER 2023-12-26 16:01 | Inpatient (IN) | payer OTHER ==
[~2023-12-26 16:01] MED LIST: ALBUTEROL SO4 2.5/IPRATROPIUM 0.5 INH SOL 3 ML VIAL.NEB. NEB SCH
[2023-12-26 16:45] LABS: VENOUS BASE EXCESS -4.1 mmol/L (-2-2); VENOUS O2 SATURATION 97.8 % (70-80); VENOUS PCO2 35.2 mmHg (38-52); VENOUS PH 7.381 (7.310-7.410)
[2023-12-26] MEDS ORDERED: ACETAMINOPHEN INJECTION 100 ML IVPB ONE (16:45)
[2023-12-26 16:48] LABS: HEMATOCRIT 29.9 % (32.4-45.2); HEMOGLOBIN 9.7 GM/dL (10.7-15.3); MCH 30.1 pg (25.7-33.7); MCHC 32.6 g/dl (32.0-36.0); MEAN CELL VOLUME 92.6 fl (80-96); MEAN PLT VOLUME 8.3 fl (7.5-11.1); PLATELET COUNT 199 10^3/uL (134-434); RBC 3.23 M/mm3 (3.60-5.2); RDW 14.5 % (11.6-15.6)
[2023-12-26] MEDS: ACETAMINOPHEN 1000 MG/100 ML BAG IVPB ONE (16:50)
[2023-12-26 17:01] LABS: POTASSIUM 4.5 mmol/L (3.5-5.1)
[2023-12-26] MEDS ORDERED: VANCOMYCIN 1 GRAM (PRE-DOCKED) 1,000 MG/250 ML BAG IVPB ONE (17:01)
[2023-12-26] MEDS ORDERED: ALBUTEROL SO4 2.5/IPRATROPIUM 0.5 INH SOL 3 ML VIAL.NEB. NEB ONE ×2 (17:01→17:19)
[2023-12-26 17:05] LABS: BLOOD UREA NITROGEN 53.4 mg/dL (7-18); CALCIUM 8.6 mg/dL (8.5-10.1); MAGNESIUM 1.9 mg/dL (1.8-2.4)
[2023-12-26 17:06] LABS: ALBUMIN 2.8 g/dl (3.4-5.0)
[2023-12-26 17:08] LABS: CREATININE 3.4 mg/dL (0.55-1.3)
[2023-12-26] MEDS: ALBUTEROL SO4 2.5/IPRATROPIUM 0.5 INH SOL 3 ML VIAL.NEB. NEB SCH (17:08)
[2023-12-26] MEDS: VANCOMYCIN 1,000 MG in DEXTROSE 5%-WATER - 250 ML IVPB ONE (17:08)
[2023-12-26 17:09] LABS: ACTIVATED PTT 26.3 SECONDS (25.2-36.5); INR 0.96 (0.83-1.09); PROTHROMBIN TIME (PATIENT) 11.1 SEC (9.7-13.0)
[2023-12-26 17:10] LABS: BILIRUBIN,TOTAL 0.3 mg/dL (0.2-1); TOT PROT 6.6 g/dl (6.4-8.2)
[2023-12-26 17:19] LABS: PHOSPHOROUS 2.7 mg/dL (2.5-4.9)
[2023-12-26 17:22] LABS: N-TERMINAL BNP 5843.7 pg/ml (5-125)
[2023-12-26 17:32] LABS: ANISOCYTOSIS 0; MACROCYTOSIS 0
[2023-12-26] MEDS: methylPREDNISolone NA SUCC 125 MG/2 ML VIAL IVPUSH ONE ×2 (18:14→19:10)
[2023-12-26] MEDS: LACTATED RINGERS SOLUTION 1000 ML INFUS.BAG IV ONE (18:14)
[2023-12-26] MEDS ORDERED: methylPREDNISolone NA SUCC 125 MG/2 ML VIAL ONE (19:02)
[2023-12-26] MEDS ORDERED: CEFEPIME 1 GM/100 ML BAG IVPB ONE (19:03)
[2023-12-26] MEDS: CEFEPIME HCL 1 GM VIAL (RESTRICTED TO ID) IVPB ONE (19:10)
[2023-12-26 20:06] LABS: PH,URINE 6.5 (5.0-8.0); URINE APPEARANCE CLEAR; URINE BILIRUBIN NEGATIVE (NEGATIVE); URINE COLOR YELLOW; URINE GLUCOSE (UA) NEGATIVE (NEGATIVE); URINE KETONE NEGATIVE (NEGATIVE); URINE LEUK ESTERASE 1+ (NEGATIVE); URINE NITRITE NEGATIVE (NEGATIVE); URINE PROTEIN 2+ (NEGATIVE); URINE UROBILINOGEN 0.2 mg/dL (0.2-1.0)
[2023-12-26 21:16] LABS: URINE WBC 17.4 /uL (0-25.8)
[2023-12-26 21:17] LABS: EPI CELLS 16.7 /uL (0-25.1); HYALINE CASTS 0.44 /uL (0-3.1); URINE BACTERIA 33.9 /uL (0-1359); YEAST NONE SEEN (NEGATIVE)
[2023-12-26] MEDS: SODIUM BICARBONATE 650 MG TABLET PO SCH (22:35)
[2023-12-26] MEDS: AZITHROMYCIN 250 MG TABLET PO ONE (22:36)
[2023-12-26] MEDS: HEPARIN NA (PORCINE) 5,000 UNITS/ML 1ML VIAL SQ SCH (22:37)
[2023-12-26] MEDS: amLODIPine BESYLATE 5 MG TABLET (FP) PO SCH (22:37)
[2023-12-26] MEDS ORDERED: ALBUTEROL SO4 2.5/IPRATROPIUM 0.5 INH SOL 3 ML VIAL.NEB. NEB PRN (23:24)
[2023-12-27] MEDS ORDERED: methylPREDNISolone NA SUCC 40 MG/1 ML VIAL IVPUSH SCH (02:00)
[2023-12-27] MEDS: methylPREDNISolone NA SUCC 40 MG/1 ML VIAL IVPUSH SCH (02:26)
[2023-12-27] MEDS: ALBUTEROL SO4 2.5/IPRATROPIUM 0.5 INH SOL 3 ML VIAL.NEB. NEB SCH (07:40)
[2023-12-27] MEDS: CEFTRIAXONE 1 GM in DEXTROSE 5%-WATER - 50 ML IVPB SCH (09:09)
[2023-12-27] MEDS: AZITHROMYCIN 250 MG TABLET PO SCH (09:09)
[2023-12-27 09:16] LABS: HEMATOCRIT 29.1 % (32.4-45.2); HEMOGLOBIN 9.4 GM/dL (10.7-15.3); MCH 30.4 pg (25.7-33.7); MCHC 32.3 g/dl (32.0-36.0); MEAN CELL VOLUME 94.1 fl (80-96); MEAN PLT VOLUME 8.4 fl (7.5-11.1); PLATELET COUNT 181 10^3/uL (134-434); RBC 3.09 M/mm3 (3.60-5.2); RDW 14.6 % (11.6-15.6); WHITE BLOOD COUNT 14.8 K/mm3 (4.0-10.0)
[2023-12-27 09:44] LABS: POTASSIUM 4.2 mmol/L (3.5-5.1)
[2023-12-27 09:51] LABS: ALBUMIN 2.5 g/dl (3.4-5.0)
[2023-12-27 09:53] LABS: BLOOD UREA NITROGEN 52.1 mg/dL (7-18); CALCIUM 8.5 mg/dL (8.5-10.1)
[2023-12-27 09:56] LABS: CREATININE 2.9 mg/dL (0.55-1.3)
[2023-12-27 09:57] LABS: BILIRUBIN,TOTAL 0.7 mg/dL (0.2-1); TOT PROT 6.1 g/dl (6.4-8.2)
[2023-12-27 10:30] LABS: ANISOCYTOSIS 1+; MACROCYTOSIS 0
[2023-12-27] MEDS ORDERED: hydrOXYzine PAMOATE 25 MG CAPSULE (FP) PO PRN (11:32)
[2023-12-27] MEDS: clonazePAM 0.5 MG TABLET PO PRN (12:54)
[2023-12-27] MEDS: ACETAMINOPHEN 325 MG TABLET (FP) PO PRN (19:47)
[2023-12-28] MEDS: LEVOTHYROXINE NA 100 MCG TABLET (FP) PO SCH (06:13)
[2023-12-28] MEDS ORDERED: INSULIN (NOVOLOG) ASPART 100 UNITS/ML 10ML VIAL ONE (06:59)
[2023-12-28 09:38] LABS: BASO % 0.1 % (0-2.0); EOS % 0.7 % (0-4.5); HEMATOCRIT 27.6 % (32.4-45.2); HEMOGLOBIN 8.8 GM/dL (10.7-15.3); MCH 30.4 pg (25.7-33.7); MEAN CELL VOLUME 94.9 fl (80-96); MEAN PLT VOLUME 8.4 fl (7.5-11.1); MONO % 5.2 % (3.8-10.2); PLATELET COUNT 192 10^3/uL (134-434); RBC 2.91 M/mm3 (3.60-5.2); RDW 15.2 % (11.6-15.6); WHITE BLOOD COUNT 15.1 K/mm3 (4.0-10.0)
[2023-12-28] MEDS: FLUoxetine HCL 20 MG CAPSULE PO SCH (09:50)
[2023-12-28] MEDS: methylPREDNISolone NA SUCC 40 MG/1 ML VIAL IVPUSH SCH (09:51)
[2023-12-28] MEDS: TORSEMIDE 10 MG TABLET PO SCH (09:53)
[2023-12-28 09:58] LABS: POTASSIUM 4.1 mmol/L (3.5-5.1)
[2023-12-28 10:01] LABS: CALCIUM 8.2 mg/dL (8.5-10.1)
[2023-12-28 10:02] LABS: BLOOD UREA NITROGEN 60.8 mg/dL (7-18)
[2023-12-28 10:06] LABS: CREATININE 2.8 mg/dL (0.55-1.3)
[2023-12-28] MEDS: LIDOCAINE 4% PATCH TP ONE (10:57)
[2023-12-28] MEDS: LIDOCAINE PATCH REMOVAL MC ONE (21:34)
[2023-12-29 12:33] LABS: BASO % 0.2 % (0-2.0); EOS % 0.8 % (0-4.5); HEMATOCRIT 26.5 % (32.4-45.2); HEMOGLOBIN 8.9 GM/dL (10.7-15.3); LYMPH % 11.9 % (8-40); MCH 31.4 pg (25.7-33.7); MCHC 33.7 g/dl (32.0-36.0); MEAN CELL VOLUME 93.2 fl (80-96); MEAN PLT VOLUME 7.9 fl (7.5-11.1); MONO % 5.4 % (3.8-10.2); NEUT % 81.7 % (42.8-82.8); PLATELET COUNT 231 10^3/uL (134-434); RBC 2.84 M/mm3 (3.60-5.2); WHITE BLOOD COUNT 9.8 K/mm3 (4.0-10.0)
[2023-12-29 12:52] LABS: POTASSIUM 3.7 mmol/L (3.5-5.1)
[2023-12-29 13:14] LABS: ALBUMIN 2.6 g/dl (3.4-5.0)
[2023-12-29 13:15] LABS: CALCIUM 8.3 mg/dL (8.5-10.1)
[2023-12-29 13:16] LABS: BLOOD UREA NITROGEN 56.4 mg/dL (7-18)
[2023-12-29 13:20] LABS: CREATININE 2.5 mg/dL (0.55-1.3)
[2023-12-29 13:21] LABS: BILIRUBIN,TOTAL 0.2 mg/dL (0.2-1); TOT PROT 6.1 g/dl (6.4-8.2)
[2023-12-29] MEDS ORDERED: CEFUROXIME AXETIL 500 MG TABLET PO SCH (22:00)
[2023-12-29] MEDS: CEFUROXIME AXETIL 250 MG TABLET PO SCH (22:15)
[2023-12-29 22:31] VITALS: RESP 18
[2023-12-30 12:12] VITALS: BP 147/95; PULSE 81; TEMP 98.1
== END 2023-12-30 12:54 | disposition home or self-care (01) | DRG 190 ==
LOC: JER 16:01 → JERBED 19:41 → J8W 21:51
PROVIDERS: ADMIT Internal Medicine; ATTEND Nurse Practitioner Family
DX: J44.1 Chronic obstructive pulmonary disease with (acute) exacerbation (principal); J18.9 Pneumonia, unspecified organism; J96.11 Chronic respiratory failure with hypoxia; N17.9 Acute kidney failure, unspecified; E03.9 Hypothyroidism, unspecified; F32.A Depression, unspecified; B18.2 Chronic viral hepatitis C; I10 Essential (primary) hypertension; M81.0 Age-related osteoporosis without current pathological fracture; F41.9 Anxiety disorder, unspecified; J44.0 Chronic obstructive pulmonary disease with (acute) lower respiratory infection; D63.1 Anemia in chronic kidney disease; I12.9 Hypertensive chronic kidney disease with stage 1 through stage 4 chronic kidney disease, or unspecified chronic kidney disease; N18.30 Chronic kidney disease, stage 3 unspecified; R41.82 Altered mental status, unspecified; D72.829 Elevated white blood cell count, unspecified; J84.10 Pulmonary fibrosis, unspecified; Z99.81 Dependence on supplemental oxygen
CPT/HCPCS: 0241U-QW; 36415; 70450-TC; 71045-TC-FY; 71250-TC; 76775-TC; 80048; 80053; 81003; 82550; 82803; 82962; 83605; 83735; 83880; 84100; 84436; 84439; 84443; 84484; 85025; 85610; 85730; 86803; 86850; 86900; 86901; 87040; 87081; 87086; 87522; 87899; 93005; 93010; 93306-TC; 94640; 97116-GP; 99285-25; J0131; J1644